=== PATIENT | female | born 1930 | race Caucasian/White ===

== ENCOUNTER → 2016-10-04 | Outpatient (CLI) | payer MEDICARE ==
--- NOTE | 2016-10-04 21:42 | Diagnostic Imaging Report ---
APPROVED REPORT CPT Code: 01117 Present Symptoms Lower Extremity Edema: Bilateral BILATERAL: Imaging reveals a patent deep venous system bilaterally. There is no evidence of thrombus within the femoral, popliteal or tibial segments. The greater saphenous veins are also within normal limits. Doppler indicates normal spontaneous flow within these segments.
--- NOTE | 2016-10-04 21:42 | Diagnostic Imaging Report ---
APPROVED REPORT CPT Code: 18969 Symptoms Comments: Edema RIGHT LEG: Iliac and common femoral arteries waveform analysis is abnormal, suggestive of aortoiliac arterial occlusive disease. Color flow duplex sonography reveals diffuse calcified plaque throughout the superficial femoral and popliteal arteries. There is no evidence of stenosis or occlusion within these segments. The tibioperoneal trunk was not well visualized. The distal posterior tibial and dorsalis pedis arteries are also severely calcified. Doppler waveform analysis is monophasic consistent, with severe ischemia at rest. LEFT LEG: Iliac artery waveform analysis is abnormal, suggestive of aortoiliac arterial occlusive disease. Color flow duplex sonography reveals an occlusion in the common femoral artery. Reconstitution is noted at the proximal superficial femoral artery at the junction of the bifurcation. The popliteal artery is patent. The tibioperoneal trunk was not well visualized. The distal posterior tibial and dorsalis pedis arteries are also severely calcified. Doppler waveform analysis is monophasic consistent, with severe ischemia at rest. Ankle Brachial Index was performed but unobtainable due to calcified vessels. DR. Antonio was notified of abnormal results at 1520 hours.
== END | disposition home or self-care (01) ==
LOC: VAS 12:21
DX: I82.403 Acute embolism and thrombosis of unspecified deep veins of lower extremity, bilateral (principal); R60.9 Edema, unspecified
CPT/HCPCS: 93925; 93970

== ENCOUNTER 2017-11-13 16:46 | Inpatient (IN) | payer MEDICARE ==
[~2017-11-13] VITALS: Ht 152.4 cm; Wt 47.7 kg
[2017-11-13 16:54] VITALS: BP 148/87
[2017-11-13] MEDS ORDERED: Sodium Chloride 500ML 500 ML IV ONE (16:58)
[2017-11-13] MEDS ORDERED: AMLODIPINE BESY10 MG ORAL (17:37)
[2017-11-13] MEDS ORDERED: BACTRIM DS TAB1 EAC1 ORAL (17:39)
[2017-11-13] MEDS ORDERED: MULTIVITAMINS1 EAC2 ORAL (17:40)
[2017-11-13] MEDS ORDERED: ARICEPT10 MG ORAL (17:41)
[2017-11-13] MEDS ORDERED: CYMBALTA60 MG ORAL (17:42)
[2017-11-13] MEDS ORDERED: FERROUS SULFAT325 MG ORAL (17:44)
[2017-11-13] MEDS ORDERED: DUONEB 0.5-3(2.53 ML HHN (17:44)
[2017-11-13 17:45] LABS: BASOPHILS % (AUTO) 0.4 % (0.0-2.0); EOSINOPHILS % (AUTO) 0.9 % (0.0-3.0); HEMATOCRIT 37.3 % (37.0-47.0); HEMOGLOBIN 12.2 G/DL (12.0-16.0); LYMPHOCYTES % (AUTO) 8.4 % (20.0-45.0); MEAN CORPUSCULAR VOLUME 91 FL (80-99); MONOCYTES % (AUTO) 6.4 % (1.0-10.0); NEUTROPHILS % (AUTO) 83.9 % (45.0-75.0); PLATELET COUNT 233 K/UL (150-450); RED CELL DISTRIBUTION WIDTH 12.6 % (11.6-14.8); WHITE BLOOD COUNT 10.9 K/UL (4.8-10.8)
[2017-11-13] MEDS ORDERED: Metoprolol 5mg/5ml Inj IVP ONE (17:45)
[2017-11-13] MEDS ORDERED: GABAPENTIN100 MG ORAL (17:46)
[2017-11-13] MEDS ORDERED: TYLENOL EXTRA500 MG ORAL (17:47)
[2017-11-13] MEDS ORDERED: ACETAMINOPHEN325 M1 ORAL (17:48)
[2017-11-13] MEDS ORDERED: MIRTAZAPINE15 MG ORAL (17:49)
[2017-11-13] MEDS ORDERED: ZOCOR20 M1 ORAL (17:50)
[2017-11-13 17:51] LABS: APPEARANCE,URINE SLIGHTLY CLOUDY; BILIRUBIN, URINE NEGATIVE (NEGATIVE); GLUCOSE, URINE (UA) NEGATIVE (NEGATIVE); KETONES,URINE NEGATIVE (NEGATIVE); LEUKOCYTE ESTERASE ,URINE 1+ (NEGATIVE); NITRITE,URINE NEGATIVE (NEGATIVE); PH,URINE 6 (4.5-8.0); PROTEIN,URINE 2+ (NEGATIVE); UROBILINOGEN,URINE 1 MG/DL (0.0-1.0)
[2017-11-13 17:52] LABS: COLOR,URINE YELLOW
[2017-11-13] MEDS ORDERED: SYSTANE 0.3-0.415 ML BOTH EYES (17:52)
[2017-11-13] MEDS ORDERED: VITAMIN B-12500 MCG ORAL (17:53)
[2017-11-13] MEDS ORDERED: VITAMIN C500 M1 ORAL (17:54)
[2017-11-13] MEDS ORDERED: VITAMIN D1000 UNI1 ORAL (17:55)
[2017-11-13] MEDS ORDERED: XARELTO10 MG ORAL (17:56)
--- NOTE | 2017-11-13 18:12 | Emergency Room Report ---
History of Present Illness General Chief Complaint: Dyspnea/Respdistress Source: Caregiver Present Illness HPI 87-year-old female presents ED for evaluation. Patient comes from facility for low O2 sat 1 day. O2 sat improved with oxygen upon arrival. Upon arrival patient showing no signs of distress. Baby Counselor at bedside. No fever. No reported chest pain. No other aggravating relieving factors. No other associated symptoms Allergies: Coded Allergies: ALCOHOL (Unverified Allergy, Unknown, 11/13/17) Patient History Past Medical History: AFib, CVA/TIA, psych hx Past Surgical History: none Pertinent Family History: none Social History: Denies: smoking, alcohol use, drug use Now: No Immunizations: UTD Reviewed Nursing Documentation: PMH: Agreed; PSxH: Agreed Nursing Documentation-PMH Hx Cardiac Problems: Yes - A-fib, PVD History Of Psychiatric Problem: Yes - depression Hx Cerebrovascular Accident: Yes Review of Systems All Other Systems: limited Physical Exam Vital Signs Date Time Temp Pulse Resp B/P (MAP) Pulse Ox O2 Delivery O2 Flow Rate FiO2 11/13/17 16:39 104 28 158/92 96 Nasal Cannula 6.0 Sp02 EP Interpretation: reviewed, normal General Appearance: no apparent distress, lethargic Head: normocephalic, atraumatic Eyes: bilateral eye normal inspection, bilateral eye PERRL ENT: hearing grossly normal, normal pharynx, no angioedema, normal voice Neck: full range of motion, supple/symm/no masses Respiratory: chest non-tender, normal breath sounds, crackles, speaking full sentences Cardiovascular #1: no edema, tachycardia Cardiovascular #2: 2+ carotid (R), 2+ carotid (L), 2+ radial (R), 2+ radial (L) , 2+ dorsalis pedis (R), 2+ dorsalis pedis (L) Gastrointestinal: normal bowel sounds, non tender, soft, non-distended, no guarding, no rebound Rectal: deferred Genitourinary: normal inspection, no CVA tenderness Musculoskeletal: back normal, gait/station normal, normal range of motion, non- tender Neurologic: other - lethargic Psychiatric: other - lethargic Reflexes: 3+ bicep (R), 3+ bicep (L), 3+ tricep (R), 3+ tricep (L), 3+ knee (R) , 3+ knee (L) Skin: normal color, no rash, warm/dry, well hydrated Lymphatic: no adenopathy Medical Decision Making Diagnostic Impression: Primary Impression: Respiratory distress Additional Impressions: Atrial fibrillation with rapid ventricular response UTI (urinary tract infection) Qualified Codes: N39.0 - Urinary tract infection, site not specified Sepsis Qualified Codes: A41.9 - Sepsis, unspecified organism ER Course Hospital Course 87-year-old female presents to ED with hypoxia, respiratory distress Differential diagnoses include: Pneumonia, CHF exacerbation, pneumothorax, fluid overload Clinical course Patient placed on stretcher. On monitor worker with hypoxia on room air and tachycardia. After initial history and physical, I ordered ABG. I ordered labs , IV fluids, EKG, chest x-ray, blood cultures, UA. ABG shows a low PO2. Started on Ventimask. Labs -no leukopenia noted, hemoglobin/hematocrit stable, Na 147, lactae 2.3, UA + bacteria EKGA. fib with RVR CXR - increased interstitial congestion R lung Patient given Lopressor with heart rate improved Patient had additional suctioning provided and O2 saturations improved. Given 30 mL per KG IV fluid bolus. Given antibiotics Discussed case with family. Patient is DO NOT RESUSCITATE, selective treatment Case discussed with Dr. Gross and he agreed to the patient to his service for further care and support I feel this is a highly complex case requiring extensive working including EKG/ Rhythm strip, Xray/CT/US, Blood/urine lab work, repeat exams while in ED, and administration of strong opiates/narcotics for pain control, admission to hospital or close patient follow up. Diagnosis - respiratory distress, afib with RVR, UTI, sepsis Patient admitted to telemetry in serious condition Labs Test 11/13/17 17:08 11/13/17 17:13 11/13/17 17:25 Arterial Blood pH 7.400 (7.350-7.450) Arterial Blood Partial Pressure CO2 40.4 mmHg (35.0-45.0) Arterial Blood Partial Pressure O2 61.8 mmHg (75.0-100.0) Arterial Blood HCO3 25.0 mmol/L (22.0-26.0) Arterial Blood Oxygen Saturation 90.2 % (92.0-98.0) Arterial Blood Base Excess 0.3 Randall Test Positive White Blood Count 10.9 K/UL (4.8-10.8) Red Blood Count 4.10 M/UL (4.20-5.40) Hemoglobin 12.2 G/DL (12.0-16.0) Hematocrit 37.3 % (37.0-47.0) Mean Corpuscular Volume 91 FL (80-99) Mean Corpuscular Hemoglobin 29.7 PG (27.0-31.0) Mean Corpuscular Hemoglobin Concent 32.6 G/DL (32.0-36.0) Red Cell Distribution Width 12.6 % (11.6-14.8) Platelet Count 233 K/UL (150-450) Mean Platelet Volume 7.2 FL (6.5-10.1) Neutrophils (%) (Auto) 83.9 % (45.0-75.0) Lymphocytes (%) (Auto) 8.4 % (20.0-45.0) Monocytes (%) (Auto) 6.4 % (1.0-10.0) Eosinophils (%) (Auto) 0.9 % (0.0-3.0) Basophils (%) (Auto) 0.4 % (0.0-2.0) Urine Color Yellow Urine Appearance Slightly cloudy Urine pH 6 (4.5-8.0) Urine Specific [place] 1.020 (1.005-1.035) Urine Protein 2+ (NEGATIVE) Urine Glucose (UA) Negative (NEGATIVE) Urine Ketones Negative (NEGATIVE) Urine Occult Blood 1+ (NEGATIVE) Urine Nitrite Negative (NEGATIVE) Urine Bilirubin Negative (NEGATIVE) Urine Urobilinogen 1 MG/DL (0.0-1.0) Urine Leukocyte Esterase 1+ (NEGATIVE) Urine RBC 2-4 /HPF (0 - 2) Urine WBC 5-10 /HPF (0 - 2) Urine Squamous Epithelial Cells Few /LPF (NONE/OCC) Urine Bacteria Occasional /HPF (NONE) Sodium Level 147 MMOL/L (136-145) Potassium Level 4.1 MMOL/L (3.5-5.1) Chloride Level 109 MMOL/L (98-107) Carbon Dioxide Level 29 MMOL/L (21-32) Anion Gap 9 mmol/L (5-15) Blood Urea Nitrogen 23 mg/dL (7-18) Creatinine 0.9 MG/DL (0.55-1.30) Estimat Glomerular Filtration Rate mL/min (>60) Glucose Level 114 MG/DL (74-106) Lactic Acid Level 2.30 mmol/L (0.66-2.22) Calcium Level 8.2 MG/DL (8.5-10.1) Total Bilirubin 0.3 MG/DL (0.2-1.0) Aspartate Amino Transf (AST/SGOT) 28 U/L (15-37) Alanine Aminotransferase (ALT/SGPT) 24 U/L (12-78) Alkaline Phosphatase 75 U/L (46-116) Total Creatine Kinase 69 U/L (26-308) Creatine Kinase MB 1.5 NG/ML (0.0-3.6) Creatine Kinase MB Relative Index 2.1 Troponin I 0.005 ng/mL (0.000-0.056) Pro-B-Type Natriuretic Peptide 5370 pg/mL (0-125) Total Protein 6.6 G/DL (6.4-8.2) Albumin 3.0 G/DL (3.4-5.0) Globulin 3.6 g/dL Albumin/Globulin Ratio 0.8 (1.0-2.7) EKG Diagnostic Results Rate: tachycardiac Rhythm: other - afib with RVR ST Segments: no acute changes ASA given to the pt in ED: No Rhythm Strip Diag. Results EP Interpretation: yes Rhythm: no PVC's, no ectopy Chest X-Ray Diagnostic Results Chest X-Ray Diagnostic Results : Chest X-Ray Ordered: Yes # of Views/Limited/Complete: 1 View Indication: Shortness of Breath EP Interpretation: Yes Interpretation: no pneumothorax, other - increased interstitial changes on R side Impression: Other - ?PNA Electronically Signed by: Electronically signed by Philip Ospina MD Last Vital Signs Date Time Temp Pulse Resp B/P (MAP) Pulse Ox O2 Delivery O2 Flow Rate FiO2 11/13/17 17:49 144 138/88 11/13/17 16:54 28 96 Nasal Cannula 6.0 Status: improved Disposition: ADMITTED INPATIENT Condition: Serious Referrals: KALEB GROSS (PCP) Philip Ospina MD Nov 13, 2017 18:12
[2017-11-13 18:16] LABS: ANION GAP 9 mmol/L (5-15); BLOOD UREA NITROGEN 23 mg/dL (7-18); CALCIUM 8.2 MG/DL (8.5-10.1); CARBON DIOXIDE 29 MMOL/L (21-32); CHLORIDE 109 MMOL/L (98-107); CREATININE 0.9 MG/DL (0.55-1.30); POTASSIUM 4.1 MMOL/L (3.5-5.1); SODIUM 147 MMOL/L (136-145)
[2017-11-13 18:33] LABS: ALANINE AMINOTRANSFERASE 24 U/L (12-78); ALBUMIN/GLOBULIN RATIO 0.8 (1.0-2.7); ALKALINE PHOSPHATASE 75 U/L (46-116); ASPARTATE AMINO TRANSFERASE 28 U/L (15-37); BILIRUBIN,TOTAL 0.3 MG/DL (0.2-1.0); CKMB 1.5 NG/ML (0.0-3.6); CREATINE KINASE 69 U/L (26-308)
[2017-11-13 20:30] VITALS: BP 139/88
--- NOTE | 2017-11-13 21:10 | Geriatric Progress Note ---
Subjective Interval Events Patient currently sleeping, appears more comfortable. Patient with increasing congestion, cough for about a week. Evaluation at her [facility] included CXR with "mild RUL infiltrate" suggestive of pneumonitis. Respiratory treatments and Bactrim DS were initiated. Today, the facility reported that patient's sxs were worse, and she had been desaturating, and requiring 5l/m O2. The choice of emergency room evaluation was deferred initially by family members, but subsequently patient was brought to the ED at [facility]. Evaluation revealed sats as low as the 70s, the patient was noted to have elevated lactate, and it was felt that the patient had a R pneumonitis. Levaquin was given and the patient received hydration. Rapid a fib was treated with metoprolol with rate control achieved. Suctioning improved O2 sats. The patient was admitted for further eval and tx. Family at bedside, confirmed DNR/DNI, continue active tx. PMH: Moderately advanced cognitive dysfunction - ? vascular dementia, ? Korsakoff's, ?element of primary degenerative dementia. S/p CVA, s/p L CEA. Lumbar spinal stenosis/scoliosis. Hx tobacco usage. Hx alcohol dependency. HTN. Dyslipidemia. COPD. CHF. Osteoporosis. L foot drop. Peripheral neuropathy. Chronic pain syndrome. Anxious depression. Hx R femoral fracture. Gait disorder, non-ambulatory. Atrial fibrillation. B12 deficiency. Vit D deficiency. Medications: Acetaminophen 500mg qam, qnoon, qpm. Amlodipine 10mg daily. Vitamin C 1000mg daily. B12 1mg daily po. Vit D3 2000u daily. MVI. Donepezil 10mg qhs. Duloxetine 60mg daily. Mirtazapine 15mg qhs. Rivaroxaban 15mg daily. Simvastatin 20mg qhs. Gabapentin 100mg bid. FeSO4 325mg bid. Systane 1gtt ou tid. OcuSoft Eyelid Cleansing External Pad Sleeping. O2 in place. Chest with rhonchi, rales diffusely, no wheezing. CV irregular. Abd nl bowel sounds, soft, non-tender, without masses. Ext trace ankle edema. Imp: Pneumonia +/- CHF, possibly precipitated by rapid a fib. A fib with hx of CHF, suspect element of diastolic dysfunction due to rapid rate , hypoxia. ? systolic component with ischemic component. Resp tx, one dose IV Lasix, O2, bronchodilator tx, Ceftriaxone, Vanco. Recheck labs. Check echo. Dictated #[id number]. Geriatric Geriatric Last 24 Hour Vital Signs Date Time Temp Pulse Resp B/P (MAP) Pulse Ox O2 Delivery O2 Flow Rate FiO2 11/13/17 20:19 28 138/88 96 Nasal Cannula 6.0 11/13/17 17:49 144 138/88 11/13/17 16:54 28 148/87 96 Nasal Cannula 6.0 11/13/17 16:54 104 28 Nasal Cannula 6.0 11/13/17 16:39 104 28 158/92 96 Nasal Cannula 6.0 Laboratory Tests Test 11/13/17 17:08 11/13/17 17:13 11/13/17 17:25 11/13/17 19:23 Arterial Blood pH 7.400 (7.350-7.450) Arterial Blood Partial Pressure CO2 40.4 mmHg (35.0-45.0) Arterial Blood Partial Pressure O2 61.8 mmHg (75.0-100.0) L Arterial Blood HCO3 25.0 mmol/L (22.0-26.0) Arterial Blood Oxygen Saturation 90.2 % (92.0-98.0) L Arterial Blood Base Excess 0.3 Randall Test Positive White Blood Count 10.9 K/UL (4.8-10.8) H Red Blood Count 4.10 M/UL (4.20-5.40) L Hemoglobin 12.2 G/DL (12.0-16.0) Hematocrit 37.3 % (37.0-47.0) Mean Corpuscular Volume 91 FL (80-99) Mean Corpuscular Hemoglobin 29.7 PG (27.0-31.0) Mean Corpuscular Hemoglobin Concent 32.6 G/DL (32.0-36.0) Red Cell Distribution Width 12.6 % (11.6-14.8) Platelet Count 233 K/UL (150-450) Mean Platelet Volume 7.2 FL (6.5-10.1) Neutrophils (%) (Auto) 83.9 % (45.0-75.0) H Lymphocytes (%) (Auto) 8.4 % (20.0-45.0) L Monocytes (%) (Auto) 6.4 % (1.0-10.0) Eosinophils (%) (Auto) 0.9 % (0.0-3.0) Basophils (%) (Auto) 0.4 % (0.0-2.0) Urine Color Yellow Urine Appearance Slightly cloudy Urine pH 6 (4.5-8.0) Urine Specific [place] 1.020 (1.005-1.035) Urine Protein 2+ (NEGATIVE) H Urine Glucose (UA) Negative (NEGATIVE) Urine Ketones Negative (NEGATIVE) Urine Occult Blood 1+ (NEGATIVE) H Urine Nitrite Negative (NEGATIVE) Urine Bilirubin Negative (NEGATIVE) Urine Urobilinogen 1 MG/DL (0.0-1.0) H Urine Leukocyte Esterase 1+ (NEGATIVE) H Urine RBC 2-4 /HPF (0 - 2) H Urine WBC 5-10 /HPF (0 - 2) H Urine Squamous Epithelial Cells Few /LPF (NONE/OCC) Urine Bacteria Occasional /HPF (NONE) Sodium Level 147 MMOL/L (136-145) H Potassium Level 4.1 MMOL/L (3.5-5.1) Chloride Level 109 MMOL/L (98-107) H Carbon Dioxide Level 29 MMOL/L (21-32) Anion Gap 9 mmol/L (5-15) Blood Urea Nitrogen 23 mg/dL (7-18) H Creatinine 0.9 MG/DL (0.55-1.30) Estimat Glomerular Filtration Rate mL/min (>60) Glucose Level 114 MG/DL (74-106) H Lactic Acid Level 2.30 mmol/L (0.66-2.22) H 1.70 mmol/L (0.66-2.22) Calcium Level 8.2 MG/DL (8.5-10.1) L Total Bilirubin 0.3 MG/DL (0.2-1.0) Aspartate Amino Transf (AST/SGOT) 28 U/L (15-37) Alanine Aminotransferase (ALT/SGPT) 24 U/L (12-78) Alkaline Phosphatase 75 U/L (46-116) Total Creatine Kinase 69 U/L (26-308) Creatine Kinase MB 1.5 NG/ML (0.0-3.6) Creatine Kinase MB Relative Index 2.1 Troponin I 0.005 ng/mL (0.000-0.056) Pro-B-Type Natriuretic Peptide 5370 pg/mL (0-125) H Total Protein 6.6 G/DL (6.4-8.2) Albumin 3.0 G/DL (3.4-5.0) L Globulin 3.6 g/dL Albumin/Globulin Ratio 0.8 (1.0-2.7) L Height (Feet): 5 Weight (Pounds): 100 KALEB GROSS Nov 13, 2017 21:10
[2017-11-13] MEDS ORDERED: Albuterol/Ipratropium 3ml neb HHN PRN (22:15)
[2017-11-13] MEDS ORDERED: Vancomycin 1gm in D5W 275ml IVPB ONE (22:30)
[2017-11-13] MEDS ORDERED: Vancomycin 1gm inj IVPB ONE (23:01)
[2017-11-13] MEDS: cefTRIAXone 1 GM in D5W 55 ML IVPB SCH (23:29)
[2017-11-14] VITALS: BP 127/68
[2017-11-14] MEDS: Albuterol/Ipratropium 3ml neb HHN SCH ×3 (01:45→12:55)
[2017-11-14 04:00] VITALS: BP 120/76
[2017-11-14 08:00] VITALS: BP 137/78
--- NOTE | 2017-11-14 08:01 | History and Physical Report ---
DATE OF ADMISSION: 11/13/2017 PATIENT IDENTIFICATION: The patient is an 87-year-old woman, who presents with increasing congestion, hypoxia, and difficulty breathing. HISTORY OF PRESENT ILLNESS: Ms. Amin is a patient with multiple chronic medical problems, who was noted approximately a week ago to have development of cough and congestion. Initially, her symptoms were compatible with viral syndrome. Subsequently, she was noted to have persistent cough and a chest x-ray was done, which showed a "mild" right upper lobe infiltrate possibly suggesting an element of pneumonitis. The patient was treated with bronchodilator therapy as well as oral Bactrim. Today, the patient was noted to be more congested with episodes of hypoxia, requiring 5 liters of oxygen supplementation at the [facility] where she lived. The option of having the patient to go to the emergency room was initially deferred by the patient's family members since they felt the patient could potentially recover on the antibiotic therapy and also because they felt that a trip to the emergency room would be disorienting given the patient's cognitive dysfunction, however, later in the day, the patient increasingly short of breath and the family agreed to transfer to the [facility]. In the emergency department, the patient was evaluated by Dr. Ospina, who found evidence of some opacity bilaterally on chest x-ray, more prominent on the right side and felt this was primarily due to pneumonitis. The patient was treated with a dose of intravenous Levaquin and respiratory treatments as well as oxygen supplementation. The patient was also noted to develop rapid ventricular response to chronic atrial fibrillation. A dose of metoprolol was given which provided rate control. The patient was then admitted for further evaluation and treatment. PAST MEDICAL HISTORY: 1. Moderately advanced cognitive dysfunction felt to be associated with underlying vascular dementia with possible component of Korsakoff's and possible element of primary degenerative dementia. 2. Status post prior cerebrovascular accident, status post left carotid endarterectomy. 3. Lumbar spinal stenosis and scoliosis, status post lumbar surgery x2. 4. History of tobacco usage. 5. History of alcohol dependency. 6. Hypertension. 7. Dyslipidemia. 8. COPD. 9. CHF. 10. Osteoporosis. 11. Left footdrop. 12. Peripheral neuropathy. 13. Chronic pain syndrome. 14. Anxious depression. 15. History of right femoral fracture, status post surgery. 16. Gait disorder, nonambulatory. 17. Atrial fibrillation. 18. B12 deficiency. 19. Vitamin D deficiency. MEDICATIONS: The patient's medications prior to admission included acetaminophen 500 mg q.a.m., q.noon, q.p.m. Amlodipine 10 mg daily, vitamin C 1000 mg daily, B12 1 mg daily p.o., vitamin D3 2000 units daily, multivitamins, donepezil 10 mg nightly, duloxetine 60 mg daily, mirtazapine 15 mg nightly, rivaroxaban 15 mg daily, simvastatin 20 mg nightly, gabapentin 100 mg b.i.d., ferrous sulfate 325 mg b.i.d., Systane 1 drop both eyes t.i.d., OCuSOFT eyelid cleansing external pads. ALLERGIES: No known drug allergies. SOCIAL HISTORY: The patient was born in [place], [place]. 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 She was in 2007 after being in 1970. She has four daughters. She moved into an [facility] several years ago and has been relatively stable. There is a prior long history of excessive alcohol use with multiple hospitalizations for blackouts and other sequela of alcohol. There is a history of possibly 45 pack-year smoking, which was discontinued some 25 years ago. She subsequently was treated by pain management and was on fairly large doses of narcotic medications without resolution of her pain and anxiety. In recent years, the patient has been managed with use of antidepressants including Cymbalta for pain management as well as peripheral neuropathy and has improved considerably. She has been at the [facility] and has been relatively pain-free and without evidence of significant anxiety in the facility on her medication regimen. FAMILY HISTORY: Not directly contributory at this time. REVIEW OF SYSTEMS: The patient is sleeping and unable to respond. Her family describes her as doing well until the onset of the symptoms outlined above. In fact, she was seen in the office on 10/23/2017 at which time, she was at her baseline, in good spirits without evidence of respiratory distress. PHYSICAL EXAMINATION: VITAL SIGNS: The patient was lying in bed, sleeping with oxygen in place at 6 liters. Her blood pressure was 138/88, respiratory rate was approximately 24, heart rate was 87 on the monitor, the patient was afebrile, oxygen saturation was 96%. GENERAL: The patient was a frail, chronically ill-appearing woman, sleeping, and not in obvious distress. HEAD AND NECK: Revealed normocephalic and atraumatic skull. Sclerae appeared anicteric. The oropharynx was not well visualized. The neck appeared to have normal range of motion without masses. CHEST: Revealed diffuse congestion with rhonchi throughout and rales predominantly in the lower lung faustin. No wheezing was heard. CARDIOVASCULAR: Revealed irregular rhythm with a controlled heart rate. ABDOMEN: Revealed normal bowel sounds. Soft and nontender without masses or organomegaly appreciated. EXTREMITIES: Revealed trace ankle edema. NEUROLOGIC: Could not be done because the patient was sleeping. LABORATORY AND DIAGNOSTIC DATA: The patient's chest x-ray has not been read officially, but was reviewed in the emergency room and revealed evidence of diffuse markings, more prominent in the right lung than the left and more prominent in the right lower region. Given the patient's chest x-ray findings suggested some focal infiltrate consistent with pneumonitis in the right lung, but also the diffuse haziness raises possibility of a component of fluid redistribution as well. The right upper lobe infiltrate that was reported on the x-ray at the facility was not visible. On my examination of the x-ray in the emergency room, possibility is that an infiltrate may have in fact been somewhat represented fluid redistribution which was changed because of body position on the followup film. Laboratory data revealed white count 10.9, hematocrit 37.3, MCV 91, platelet count 233,000 with 83.9% neutrophils in the differential and 8.4% lymphocytes. Blood gas done in the emergency room showed pH of 7.4, pCO2 of 40, pO2 of 62 on 3 liters by nasal cannula. Urinalysis revealed 2+ protein, 1+ occult blood, 1+ urobilinogen, 1+ leukocyte esterase, negative nitrites, 2 to 4 rbc's, 5 to 10 wbc's, and occasional bacteria. Sodium is 147, potassium 4.1, chloride 109, bicarbonate 29, BUN 23, creatinine 0.9, glucose 114. Lactate 2.30 initially. Repeat lactate 1.70. Calcium 8.2. Total bilirubin 0.3, AST 28, ALT 24, alkaline phosphatase 75. Total CK 69, MB 1.5. Troponin I 0.005. ProBNP 5370. Total protein 6.6, albumin 3.0. Electrocardiogram in the emergency room was reported to show rapid atrial fibrillation. IMPRESSION AND PLAN: The patient presents with a pulmonary process which potentially began with viral syndrome and may have developed mild secondary pneumonitis. At this point, there is also consideration of fluid overload as a contribution. Given the fact that the patient if anything looked somewhat volume depleted initially, possibility arises that the patient may have developed diastolic congestive heart failure precipitated by the rapid atrial fibrillation which may have been precipitated itself by the hypoxic episode. In any event, at this point, given the high BNP and the x-ray picture, a single dose of Lasix intravenously 20 mg will be given. The patient will be placed on ceftriaxone and vancomycin as broad-spectrum antibiotic coverage for the infectious component of her presentation. Respiratory treatments with bronchodilators will be used as well as suctioning and oxygen supplementation obviously. The patient's repeat laboratories will be checked. A cardiac echo will be obtained to evaluate left ventricular function and possible evidence of diastolic dysfunction. The situation was discussed in detail with the patient's daughters at bedside. Given the patient's advanced dementia as well as her multiple chronic medical problems, the patient has been elected to be DNR/DNI per prior POLST, but the family does wish to pursue usual therapies actively at the present time. They feel that the patient's quality of life recently has been quite reasonable given the control of her chronic pain syndrome and her depression and anxiety on medications and that the patient would benefit from extension of that functional level if it can be attained, however, should the patient have catastrophic complications then aggressive invasive therapy including resuscitation would not be desirable. Additional interventions will be considered depending on the patient's initial response to therapy. Chacho Antonio M.D. DR: VIRGIL JOB#: [id number] CC: ROSEY
[2017-11-14] MEDS: DULoxetine 30mg cap ORAL SCH (09:00)
[2017-11-14] MEDS ORDERED: NS Irrig 1000ml ONE (09:37)
[2017-11-14] MEDS ORDERED: Tubing IV Secondary IV ONE (09:37)
[2017-11-14 10:37] LABS: HEMATOCRIT 35.5 % (37.0-47.0); HEMOGLOBIN 11.4 G/DL (12.0-16.0); MEAN CORPUSCULAR VOLUME 90 FL (80-99); PLATELET COUNT 224 K/UL (150-450); RED BLOOD COUNT 3.92 M/UL (4.20-5.40); RED CELL DISTRIBUTION WIDTH 12.5 % (11.6-14.8); WHITE BLOOD COUNT 10.1 K/UL (4.8-10.8)
[2017-11-14 10:50] LABS: ALANINE AMINOTRANSFERASE 37 U/L (12-78); ALBUMIN 2.8 G/DL (3.4-5.0); ALBUMIN/GLOBULIN RATIO 0.7 (1.0-2.7); ALKALINE PHOSPHATASE 78 U/L (46-116); ANION GAP 12 mmol/L (5-15); ASPARTATE AMINO TRANSFERASE 39 U/L (15-37); BILIRUBIN,TOTAL 0.4 MG/DL (0.2-1.0); BLOOD UREA NITROGEN 19 mg/dL (7-18); CALCIUM 7.9 MG/DL (8.5-10.1); CARBON DIOXIDE 25 MMOL/L (21-32); CHLORIDE 107 MMOL/L (98-107); CREATININE 1.2 MG/DL (0.55-1.30); POTASSIUM 3.7 MMOL/L (3.5-5.1); SODIUM 144 MMOL/L (136-145)
--- NOTE | 2017-11-14 11:01 | Diagnostic Imaging Report ---
Indication: Shortness of breath Technique: XRAY Chest 1v Comparison: None Findings: Heart is borderline enlarged. There are atherosclerotic calcifications. There is right apical scarring with calcified nodules again noted at the right apex. There is interstitial opacification/edema and patchy bilateral airspace opacities. Question trace right pleural effusion. No definite pneumothorax. There is osteopenia, scoliosis and multilevel degenerative change of the spine. Lumbar hardware partially visualized. Multiple clips noted overlying the left neck. Impression: Interstitial opacification/edema and patchy bilateral airspace opacities with probable trace pleural effusions. Findings possibly related to CHF/fluid overload. Superimposed pneumonia not entirely excluded. Clinical correlation and follow-up exam recommended. Study obtained via the emergency department however patient admitted to the hospital at time of dictation of the final report.
[2017-11-14] MEDS ORDERED: Levalbuterol Inh UD 1.25mg/0.5ml HHN PRN (13:45)
[2017-11-14 13:56] VITALS: BP 101/61
[2017-11-14] MEDS ORDERED: Ipratropium 0.02% Inh Soln 2.5ml UD HHN PRN (14:15)
[2017-11-14] MEDS: Xarelto 15mg tab ORAL SCH (15:00)
--- NOTE | 2017-11-14 16:27 | Consultation ---
Consult Note Assessment/Plan [facility] DICT # [id number] BRIDGETT MORENO M.D. Nov 14, 2017 16:27
[2017-11-14 20:00] VITALS: BP 110/72
[2017-11-14] MEDS: Donepezil 10mg tab ORAL SCH (21:05)
--- NOTE | 2017-11-14 21:30 | Consultation ---
DATE OF CONSULTATION: 11/14/2017 PULMONARY CONSULTATION CONSULTING PHYSICIAN: Isai Chin M.D. REFERRING PHYSICIAN: Chacho Antonio M.D. REASON FOR CONSULTATION: Shortness of breath. HISTORY OF PRESENT ILLNESS: The patient is an 87-year-old female with a history of cognitive dysfunction, thought to be secondary to vascular dementia and Korsakoff syndrome, prior CVA and multiple other medical problems, who resides at a assisted living ([place]), who presents with shortness of breath, cough and congestion. Initially, her symptoms were thought to be secondary to a viral URI. She has cough, congestion and rhinorrhea. Chest x-ray showed mild right upper lobe infiltrate. The patient was treated with bronchodilators and Bactrim. Her symptoms got worse with increased wheezing as well as progressive oxygen requirement up to 5 liters. The patient was sent to the emergency department. Initially, the family did not want her to go and I was uncertain of their views and goals of care, but they agreed. When she arrived at the emergency department, chest x-ray showed right-sided infiltrate. The patient has been started on Rocephin and vancomycin. The patient went into atrial fibrillation with rapid ventricular response in the ER, and was given metoprolol. She has been afebrile with T-max of 97.9 degrees and is saturating in the mid 90s on 15 liters non-rebreather facemask. Labs were unremarkable. ABG was 7.4/40/61/25/90. She did have a mild lactic acidosis with lactic acid of 2.3, but that has since resolved. She had an elevated beta-natriuretic peptide and in addition to pneumonia, evidence of urinary tract infection. PAST MEDICAL HISTORY: 1. Cognitive dysfunction. 2. Korsakoff's. 3. Vascular dementia. 4. CVA. 5. Carotid endarterectomy. 6. Prior tobacco use. 7. Prior alcohol use. 8. Hypertension. 9. Hyperlipidemia. 10. CHF. 11. COPD. 12. Osteoporosis. 13. Peripheral neuropathy. 14. Left footdrop. 15. Chronic pain syndrome. 16. Anxiety. 17. Depression. 18. History of ORIF of the femur. 19. Gait deformity. 20. Paroxysmal atrial fibrillation. 21. Vitamin D deficiency. 22. B12 deficiency. MEDICATIONS: Prior to admission medications reviewed. Current medications reviewed. ALLERGIES: No known drug allergies. SOCIAL HISTORY: The patient lives in assisted living. She is and has 4 daughters. Extensive history of tobacco and alcohol in the past, none current. FAMILY HISTORY: Noncontributory. REVIEW OF SYSTEMS: Unobtainable. PHYSICAL EXAMINATION: GENERAL: She is a confused, demented female, in no acute distress. Awake, but oriented x0. VITAL SIGNS: Temperature is 97.9 degrees, pulse 104, blood pressure 101/61, respiratory rate 22, and saturating 94% on 55% FiO2, 15 liters Venturi mask. HEENT: Normocephalic and atraumatic. Oropharynx is clear. NECK: Supple without lymphadenopathy. CHEST: Coarse bilateral breath sounds, end-expiratory wheezing with some bibasilar rales. HEART: Irregularly irregular. ABDOMEN: Soft and nondistended. EXTREMITIES: No clubbing or clubbing. There is 1+ edema. ANCILLARY DATA: White count 10.1, hemoglobin 11.4 and platelet count 224. ABG 7.4/40/61/25/90. Chemistry - sodium 141, potassium 3.7, chloride 105, bicarbonate 25, BUN 19, creatinine 1.2 and glucose 131. Lactate 2.30 and then 1.70. Calcium 7.9. Magnesium 1.7. Total bilirubin 0.4. AST 39, ALT 37 and alkaline phosphatase 78. Troponin 0.005. BNP 5370 and followup 6407. Total protein 6.7. Albumin 2.8. Urinalysis, 2+ protein, 1+ occult blood, negative ketones, 1+ leukocyte esterase, 5 to 10 white. Rapid flu is negative. Chest x-ray shows interstitial opacities, trace pleural effusions and possible patchy right upper lobe airspace opacity. ASSESSMENT: The patient is an 87-year-old demented female, assisted living resident with a history of Korsakoff syndrome, CHF, COPD, ETOH and tobacco use in the past, paroxysmal atrial fibrillation, presenting with respiratory illness, likely viral URI with superimposed tracheobronchitis/pneumonia, possible aspiration with a component of reactive airway disease and bronchospasm as well as pulmonary edema. PROBLEM LIST: 1. Acute hypoxemic respiratory failure, likely multifactorial. 2. Likely viral upper respiratory tract infection with subsequent tracheobronchitis/pneumonia. 3. Congestive heart failure with a component of acute decompensated heart failure. 4. Bronchospasm and reactive airway disease. 5. Dementia. 6. Korsakoff syndrome. 7. Prior cerebrovascular accident. 8. Questionable underlying history of chronic obstructive pulmonary disease. 9. History of tobacco use in the past. 10. Paroxysmal atrial fibrillation. TREATMENT PLAN: 1. Optimize pulmonary hygiene/mobilize as tolerated. 2. Titrate down FiO2 to keep saturations greater than 90%. 3. Continue Rocephin and vancomycin, add Flagyl to cover aspiration. 4. Follow sputum culture and respiratory panel. 5. Onstrd-slh-wtjei and p.r.n. Atrovent and albuterol handheld nebulizer treatments. 6. P.r.n. Robitussin. 7. Monitor volumes, gentle diuresis as tolerated. 8. Aspiration precautions. 9. Swallow evaluation. 10. DVT prophylaxis. The patient is on Xarelto. 11. The patient is DNR/DNI. Dr. Antonio, thank you for allowing me to assist in the care of your patient. If I may be of any assistance, please do not hesitate to ask in the future. Case discussed with patient's daughter at bedside. Isai Chin M.D. DR: GAIL JOB#: [id number] CC:
--- NOTE | 2017-11-14 21:49 | Geriatric Progress Note ---
Assessment/Plan Problems: (1) Pneumonia (2) Bronchospasm (3) Acute on chronic diastolic CHF (congestive heart failure), NYHA class 4 (4) Vascular dementia (5) Chronic pain syndrome (6) Anxious depression (7) Atrial fibrillation with rapid ventricular response (8) Respiratory distress (9) Sepsis Assessment/Plan Patient currently with normal wbc on empiric coverage with Ceftriaxone, flagyl and vanco. Elevated proBNP, CXR suggestive of CHF. Will give low dose Lasix. RVR, give low dose metoprolol, patient to be monitored for wheezing. Reattempt echo. Attempt to regularize intake and med compliance. Recheck CXR. Discussed with: family, hospital staff Subjective Interval Events Patient at times agitated per staff, however, currently calm, denies c/o, but responses likely of dubious accuracy. Discussed with Dr. Chin who considered steroids, but has subsequently held off. Lasix 20mg IV dose ordered was held for relatively low bp. The patient also was reported to have refused her echo, although the circumstances are unclear. Patient has not had much intake today. She has not been given a number of her meds due to "refusal" and being asleep. Her labs are notable for further increase in proBNP. Her O2 needs appear increased, but currently she appears comfortable at rest with the NRBM. The patient has experienced episodes of RVR to the 140s, frequently associated with movement during care. Her clinical status was discussed with her dtr Elysia by phone in great detail, including the option of converting to purely palliative care if her quality of life appeared to be declining further. Constitutional: Denies: pain Subjective Limited responses at present. Geriatric Geriatric Last 24 Hour Vital Signs Date Time Temp Pulse Resp B/P (MAP) Pulse Ox O2 Delivery O2 Flow Rate FiO2 11/14/17 16:00 112 11/14/17 13:56 97.9 104 22 101/61 94 Venturi Mask 55 97.9 11/14/17 13:02 120 22 96 Non-Rebreather 15.0 100 11/14/17 13:01 100 11/14/17 12:55 114 20 92 Non-Rebreather 15.0 100 11/14/17 12:00 110 11/14/17 10:02 110 22 96 Venturi Mask 14.0 55 11/14/17 09:53 Venturi Mask 14.0 55 11/14/17 09:53 55 11/14/17 09:53 99 20 92 Venturi Mask 14.0 55 11/14/17 09:51 92 Venturi Mask 14.0 55 11/14/17 09:00 111 120/76 11/14/17 08:00 98 11/14/17 08:00 97.3 101 22 137/78 98 Venturi Mask 55 97.3 11/14/17 04:00 111 11/14/17 04:00 97.2 103 22 120/76 92 Venturi Mask 55 97.2 11/14/17 01:54 102 22 95 Venturi Mask 14.0 55 11/14/17 01:48 55 11/14/17 01:45 99 24 93 Venturi Mask 14.0 55 11/14/17 00:00 94 11/14/17 00:00 97.5 96 24 127/68 95 Venturi Mask 55 97.5 11/13/17 23:14 110 26 96 Venturi Mask 14.0 55 11/13/17 23:02 119 30 Venturi Mask 14.0 55 11/13/17 23:01 55 11/13/17 23:00 119 30 88 Venturi Mask 14.0 55 Intake and Output 11/13/17 11/14/17 19:00 07:00 Intake Total 0 ml 330 ml Balance 0 ml 330 ml Intake Oral 0 ml IV Total 330 ml # Voids 3 Laboratory Tests Test 11/14/17 10:20 White Blood Count 10.1 K/UL (4.8-10.8) Red Blood Count 3.92 M/UL (4.20-5.40) L Hemoglobin 11.4 G/DL (12.0-16.0) L Hematocrit 35.5 % (37.0-47.0) L Mean Corpuscular Volume 90 FL (80-99) Mean Corpuscular Hemoglobin 29.0 PG (27.0-31.0) Mean Corpuscular Hemoglobin Concent 32.0 G/DL (32.0-36.0) Red Cell Distribution Width 12.5 % (11.6-14.8) Platelet Count 224 K/UL (150-450) Mean Platelet Volume 7.3 FL (6.5-10.1) Neutrophils (%) (Auto) % (45.0-75.0) Lymphocytes (%) (Auto) % (20.0-45.0) Monocytes (%) (Auto) % (1.0-10.0) Eosinophils (%) (Auto) % (0.0-3.0) Basophils (%) (Auto) % (0.0-2.0) Differential Total Cells Counted 100 Neutrophils % (Manual) 81 % (45-75) H Lymphocytes % (Manual) 10 % (20-45) L Monocytes % (Manual) 9 % (1-10) Eosinophils % (Manual) 0 % (0-3) Basophils % (Manual) 0 % (0-2) Band Neutrophils 0 % (0-8) Platelet Estimate Adequate Platelet Morphology Normal Red Blood Cell Morphology Normal Anisocytosis 1+ Sodium Level 144 MMOL/L (136-145) Potassium Level 3.7 MMOL/L (3.5-5.1) Chloride Level 107 MMOL/L (98-107) Carbon Dioxide Level 25 MMOL/L (21-32) Anion Gap 12 mmol/L (5-15) Blood Urea Nitrogen 19 mg/dL (7-18) H Creatinine 1.2 MG/DL (0.55-1.30) Estimat Glomerular Filtration Rate mL/min (>60) Glucose Level 131 MG/DL (74-106) H Calcium Level 7.9 MG/DL (8.5-10.1) L Magnesium Level 1.7 MG/DL (1.8-2.4) L Total Bilirubin 0.4 MG/DL (0.2-1.0) Aspartate Amino Transf (AST/SGOT) 39 U/L (15-37) H Alanine Aminotransferase (ALT/SGPT) 37 U/L (12-78) Alkaline Phosphatase 78 U/L (46-116) Pro-B-Type Natriuretic Peptide 6407 pg/mL (0-125) H Total Protein 6.7 G/DL (6.4-8.2) Albumin 2.8 G/DL (3.4-5.0) L Globulin 3.9 g/dL Albumin/Globulin Ratio 0.7 (1.0-2.7) L Current Medications Medications (Trade) Dose Ordered Sig/Neo Route PRN Reason Start Time Stop Time Status Last Admin Dose Admin Acetaminophen (Tylenol) 650 mg Q6H PRN ORAL For Pain 11/13/17 22:15 12/13/17 22:14 Amlodipine Besylate (Norvasc) 10 mg DAILY ORAL 11/14/17 09:00 12/14/17 08:59 Ceftriaxone Sodium 1 gm/ Dextrose 55 ml @ 110 mls/hr Q24H IVPB 11/13/17 23:00 11/20/17 22:59 11/13/17 23:29 Donepezil HCl (Aricept) 10 mg QHS ORAL 11/14/17 21:00 12/14/17 20:59 11/14/17 21:05 Duloxetine HCl (Cymbalta) 60 mg DAILY ORAL 11/14/17 09:00 12/14/17 08:59 Gabapentin (Neurontin) 100 mg BID ORAL 11/14/17 09:00 12/14/17 08:59 Ipratropium [place] (Atrovent) 500 mcg Q4H PRN HHN Unrelieved Shortness of Breath 11/14/17 14:15 11/19/17 14:14 Ipratropium [place] (Atrovent) 500 mcg Q6HRT HHN 11/14/17 19:00 11/19/17 18:59 Levalbuterol HCl (Xopenex) 1.25 mg Q4H PRN HHN SOB and wheezing 11/14/17 13:45 11/19/17 13:44 Levalbuterol HCl (Xopenex) 1.25 mg Q6HRT HHN 11/14/17 19:00 11/19/17 18:59 Metronidazole 100 ml @ 100 mls/hr Q8HR IVPB 11/14/17 16:00 11/21/17 15:59 11/14/17 15:29 Mirtazapine (Remeron) 15 mg BEDTIME ORAL 11/14/17 21:00 12/14/17 20:59 11/14/17 21:05 Rivaroxaban (Xarelto) 15 mg DAILY ORAL 11/14/17 15:00 12/14/17 14:59 Vancomycin HCl (Vanco rx to dose) 1 ea DAILY PRN MISC Per rx protocol 11/13/17 22:15 12/13/17 22:14 Vancomycin HCl 500 mg/Dextrose 275 ml @ 275 mls/hr Q24H IVPB 11/14/17 22:30 11/19/17 22:29 Height (Feet): 5 Height (Inches): 0.00 Weight (Pounds): 100 General Appearance: other - arousable Head: normocephalic, atraumatic Eyes: bilateral anicteric ENT: normal voice - minimally congested Neck: full range of motion, no mass Respiratory: rales - lower lobe, rhonchi Cardiovascular: irregularly irregular Gastrointestinal: normal bowel sounds, non tender, soft, no mass, no organomegaly, non-distended Musculoskeletal: no calf tenderness Edema: no edema noted Generalized KALEB GROSS Nov 14, 2017 21:49
[2017-11-14] MEDS: Ipratropium 0.02% Inh Soln 2.5ml UD HHN SCH (22:04)
[2017-11-14] MEDS: Levalbuterol Inh UD 1.25mg/0.5ml HHN SCH (22:04)
[2017-11-14] MEDS: Metoprolol Tartrate 12.5mg TAB ORAL SCH (22:15)
[2017-11-14] MEDS: Vancomycin 500mg in D5W 275ml IVPB SCH (22:34)
[2017-11-14] MEDS: cefTRIAXone 1 GM in D5W 55 ML IVPB SCH (23:29)
[2017-11-15] VITALS: BP 102/63
[2017-11-15] MEDS: Ipratropium 0.02% Inh Soln 2.5ml UD HHN SCH ×4 (01:36→19:07)
[2017-11-15] MEDS: Levalbuterol Inh UD 1.25mg/0.5ml HHN SCH ×4 (01:36→19:09)
[2017-11-15 04:00] VITALS: BP 117/85
[2017-11-15 08:00] VITALS: BP 107/73
[2017-11-15] MEDS: DULoxetine 30mg cap ORAL SCH (08:56)
[2017-11-15] MEDS: Xarelto 15mg tab ORAL SCH (08:56)
[2017-11-15] MEDS: Magnesium Oxide 400mg tab ORAL SCH (08:56)
[2017-11-15] MEDS: Metoprolol Tartrate 12.5mg TAB ORAL SCH (08:57)
--- NOTE | 2017-11-15 09:36 | Diagnostic Imaging Report ---
Indication: Reason For Exam: SOB Technique: XRAY Chest 1v Comparison:11/13/2017 Findings: Compared to previous study there is increasing airspace disease in the right upper lobe. Bilateral interstitial disease remains. Remainder the chest is unchanged. Impression: Increasing right upper lobe airspace disease consistent with pneumonia.
[2017-11-15 10:12] LABS: MEAN CORPUSCULAR VOLUME 90 FL (80-99); PLATELET COUNT 257 K/UL (150-450); RED BLOOD COUNT 4.12 M/UL (4.20-5.40); RED CELL DISTRIBUTION WIDTH 12.4 % (11.6-14.8); WHITE BLOOD COUNT 12.4 K/UL (4.8-10.8)
[2017-11-15 10:29] LABS: ALANINE AMINOTRANSFERASE 41 U/L (12-78); ALBUMIN 2.9 G/DL (3.4-5.0); ALBUMIN/GLOBULIN RATIO 0.7 (1.0-2.7); ALKALINE PHOSPHATASE 82 U/L (46-116); ANION GAP 8 mmol/L (5-15); ASPARTATE AMINO TRANSFERASE 43 U/L (15-37); BILIRUBIN,TOTAL 0.6 MG/DL (0.2-1.0); BLOOD UREA NITROGEN 18 mg/dL (7-18); CALCIUM 8.2 MG/DL (8.5-10.1); CARBON DIOXIDE 30 MMOL/L (21-32); CHLORIDE 105 MMOL/L (98-107); CREATININE 0.9 MG/DL (0.55-1.30); POTASSIUM 3.6 MMOL/L (3.5-5.1); SODIUM 143 MMOL/L (136-145)
[2017-11-15 12:00] VITALS: BP 107/72
--- NOTE | 2017-11-15 12:22 | Pulmonology Progress Note ---
Assessment/Plan Problems: (1) Pneumonia (2) Bronchospasm (3) Atrial fibrillation with rapid ventricular response (4) Vascular dementia (5) UTI (urinary tract infection) (6) Acute on chronic diastolic CHF (congestive heart failure), NYHA class 4 Assessment/Plan ASSESSMENT: The patient is an 87-year-old demented female, assisted living resident with a history of Korsakoff syndrome, CHF, COPD, ETOH and tobacco use in the past, paroxysmal atrial fibrillation, presenting with respiratory illness, likely viral URI with superimposed tracheobronchitis/pneumonia, possible aspiration with a component of reactive airway disease and bronchospasm as well as pulmonary edema. PROBLEM LIST: 1. Acute hypoxemic respiratory failure, likely multifactorial. 2. Likely viral upper respiratory tract infection with subsequent tracheobronchitis/pneumonia. 3. Congestive heart failure with a component of acute decompensated heart failure. 4. Bronchospasm and reactive airway disease. 5. Dementia. 6. Korsakoff syndrome. 7. Prior cerebrovascular accident. 8. Questionable underlying history of chronic obstructive pulmonary disease. 9. History of tobacco use in the past. 10. Paroxysmal atrial fibrillation. TREATMENT PLAN: 1. Optimize pulmonary hygiene/mobilize as tolerated. 2. Titrate down FiO2 to keep saturations greater than 90%. 3. Continue Rocephin, vancomycin and Flagyl (D2), will de-escalate next 24 hours. 4. Follow sputum culture and respiratory panel. 5. Qbeylg-suh-yzhpw and p.r.n. Atrovent and levalbuterol (Xopenex) handheld nebulizer treatments. 6. P.r.n. Robitussin. 7. Monitor volumes, gentle diuresis as tolerated -additional 20 mg IV lasix given today 8. If persistent bronchospasm will consider a small short course of corticosteroids 9. Aspiration precautions, swallow evaluation. 10. DVT prophylaxis. The patient is on Xarelto. 11. The patient is DNR/DNI. 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, some wheezing, + SOB, no F/C Objective Last 24 Hour Vital Signs Date Time Temp Pulse Resp B/P (MAP) Pulse Ox O2 Delivery O2 Flow Rate FiO2 11/15/17 08:57 115 107/73 11/15/17 08:56 115 107/73 11/15/17 08:01 110 22 96 Non-Rebreather 15.0 100 11/15/17 08:00 115 11/15/17 08:00 97.7 123 24 107/73 94 Non-Rebreather 97.7 11/15/17 07:51 106 24 98 Non-Rebreather 15.0 100 11/15/17 07:51 Non-Rebreather 15.0 100 11/15/17 07:51 98 Non-Rebreather 15.0 100 11/15/17 04:00 97 11/15/17 04:00 98.0 104 24 117/85 98 Non-Rebreather 98.0 11/15/17 01:51 100 26 95 Non-Rebreather 15.0 100 11/15/17 01:38 100 11/15/17 01:38 96 20 96 Non-Rebreather 15.0 100 11/15/17 00:00 108 11/15/17 00:00 97.0 102 22 102/63 98 Non-Rebreather 97.0 11/14/17 22:15 108 110/72 11/14/17 20:30 128 26 96 Venturi Mask 14.0 55 11/14/17 20:20 Venturi Mask 14.0 55 11/14/17 20:20 95 Venturi Mask 14.0 55 11/14/17 20:20 100 11/14/17 20:20 118 20 92 Non-Rebreather 15.0 100 11/14/17 20:00 118 11/14/17 20:00 97.0 108 20 110/72 97 Non-Rebreather 97.0 11/14/17 16:00 112 11/14/17 13:56 97.9 104 22 101/61 94 Venturi Mask 55 97.9 11/14/17 13:02 120 22 96 Non-Rebreather 15.0 100 11/14/17 13:01 100 11/14/17 12:55 114 20 92 Non-Rebreather 15.0 100 Intake and Output 11/14/17 11/15/17 19:00 07:00 Intake Total 530 ml Balance 530 ml IV Total 530 ml # Voids 3 General Appearance: no acute distress, cachetic - elderly female HEENT: normocephalic, atraumatic Respiratory/Chest: crackles/rales - scattered rhonchi and BiB rales Cardiovascular: normal peripheral pulses, normal rate, regular rhythm Abdomen: normal bowel sounds, soft, non tender, no organomegaly Extremities: no cyanosis, no clubbing, no edema Microbiology Date/Time Source Procedure Growth Status 11/13/17 17:20 Blood Blood Culture - Preliminary NO GROWTH AFTER 24 HOURS Resulted 11/13/17 17:05 Blood Blood Culture - Preliminary NO GROWTH AFTER 24 HOURS Resulted 11/13/17 21:00 Nasal Nares MRSA Culture - Final NO METHICILLIN RESISTANT STAPH AUREUS... Complete 11/13/17 17:25 Nasal Nares Influenza Types A,B Antigen (DIANA) - Final Complete 11/13/17 21:00 Rectum VRE Culture - Final NO VANCOMYCIN RESISTANT ENTEROCOCCUS ... Complete Laboratory Tests 11/15/17 09:30: White Blood Count 12.4H, Red Blood Count 4.12L, Hemoglobin 12.0, Hematocrit 37.0 , Mean Corpuscular Volume 90, Mean Corpuscular Hemoglobin 29.0, Mean Corpuscular Hemoglobin Concent 32.3, Red Cell Distribution Width 12.4, Platelet Count 257, Mean Platelet Volume 8.4, Neutrophils (%) (Auto) , Lymphocytes (%) ( Auto) , Monocytes (%) (Auto) , Eosinophils (%) (Auto) , Basophils (%) (Auto) , Differential Total Cells Counted 100, Neutrophils % (Manual) 87H, Lymphocytes % (Manual) 6L, Monocytes % (Manual) 7, Eosinophils % (Manual) 0, Basophils % ( Manual) 0, Band Neutrophils 0, Platelet Estimate Adequate, Platelet Morphology Normal, Red Blood Cell Morphology Normal, Sodium Level 143, Potassium Level 3.6 , Chloride Level 105, Carbon Dioxide Level 30, Anion Gap 8, Blood Urea Nitrogen 18, Creatinine 0.9, Estimat Glomerular Filtration Rate , Glucose Level 130H, Calcium Level 8.2L, Magnesium Level 1.8, Total Bilirubin 0.6, Aspartate Amino Transf (AST/SGOT) 43H, Alanine Aminotransferase (ALT/SGPT) 41, Alkaline Phosphatase 82, Pro-B-Type Natriuretic Peptide 6311H, Total Protein 6.9, Albumin 2.9L, Globulin 4.0, Albumin/Globulin Ratio 0.7L Current Medications Medications (Trade) Dose Ordered Sig/Neo Route PRN Reason Start Time Stop Time Status Last Admin Dose Admin Acetaminophen (Tylenol) 650 mg Q6H PRN ORAL For Pain 11/13/17 22:15 12/13/17 22:14 Amlodipine Besylate (Norvasc) 10 mg DAILY ORAL 11/14/17 09:00 12/14/17 08:59 11/15/17 08:56 Ceftriaxone Sodium 1 gm/ Dextrose 55 ml @ 110 mls/hr Q24H IVPB 11/13/17 23:00 11/20/17 22:59 11/14/17 23:29 Donepezil HCl (Aricept) 10 mg QHS ORAL 11/14/17 21:00 12/14/17 20:59 11/14/17 21:05 Duloxetine HCl (Cymbalta) 60 mg DAILY ORAL 11/14/17 09:00 12/14/17 08:59 11/15/17 08:56 Gabapentin (Neurontin) 100 mg BID ORAL 11/14/17 09:00 12/14/17 08:59 11/15/17 08:56 Ipratropium [place] (Atrovent) 500 mcg Q4H PRN HHN Unrelieved Shortness of Breath 11/14/17 14:15 11/19/17 14:14 Ipratropium [place] (Atrovent) 500 mcg Q6HRT HHN 11/14/17 19:00 11/19/17 18:59 11/15/17 07:51 Levalbuterol HCl (Xopenex) 1.25 mg Q4H PRN HHN SOB and wheezing 11/14/17 13:45 11/19/17 13:44 Levalbuterol HCl (Xopenex) 1.25 mg Q6HRT HHN 11/14/17 19:00 11/19/17 18:59 11/15/17 07:51 Magnesium Oxide (Mag-Ox 400mg) 400 mg DAILY ORAL 11/15/17 09:00 12/15/17 08:59 11/15/17 08:56 Metoprolol [place] (Lopressor) 12.5 mg Q12HR ORAL 11/14/17 22:00 12/14/17 21:59 11/15/17 08:57 Metronidazole 100 ml @ 100 mls/hr Q8HR IVPB 11/14/17 16:00 11/21/17 15:59 11/15/17 05:57 Mirtazapine (Remeron) 15 mg BEDTIME ORAL 11/14/17 21:00 12/14/17 20:59 11/14/17 21:05 Rivaroxaban (Xarelto) 15 mg DAILY ORAL 11/14/17 15:00 12/14/17 14:59 11/15/17 08:56 Vancomycin HCl (Vanco rx to dose) 1 ea DAILY PRN MISC Per rx protocol 11/13/17 22:15 12/13/17 22:14 Vancomycin HCl 500 mg/Dextrose 275 ml @ 275 mls/hr Q24H IVPB 11/14/17 22:30 11/19/17 22:29 11/14/17 22:34 BRIDGETT MORENO M.D. Nov 15, 2017 12:22
[2017-11-15] MEDS ORDERED: Potassium Chloride 10 MEQ in NS 110 ML IVPB SCH (13:30)
[2017-11-15 16:00] VITALS: BP 108/71
[2017-11-15 20:00] VITALS: BP 108/71
--- NOTE | 2017-11-15 20:21 | Geriatric Progress Note ---
Assessment/Plan Problems: (1) Pneumonia (2) Bronchospasm (3) Acute on chronic diastolic CHF (congestive heart failure), NYHA class 4 (4) Vascular dementia (5) Chronic pain syndrome (6) Anxious depression (7) Atrial fibrillation with rapid ventricular response (8) Respiratory distress (9) Sepsis (10) Dysphagia (11) Encephalopathy Assessment/Plan Comfortable but without clinical improvement. Suspect combination of CHF and pneumonitis, ? aspiration. Continue present antibiotic coverage. Give additional low dose Lasix. Given relatively low bp, will d/c amlodipine, increase metoprolol for rate control. Await speech eval. Await echo. Continue other meds for now. Discussed with: hospital staff Subjective Interval Events Patient alert, appears to deny c/o. Speech aphasic with neologisms. Repeat CXR reveals increased R upper lobe infiltrate. Prior outpatient studies also revealed RUL "mild" infiltrate, raising issue of aspiration as contributing etiology. Swallow study pending. Apparently little oral intake per charting. HR continues to be 100-120 on Metoprolol 12.5mg bid. Echo pending if patient allows. Labs with persistent proBNP elevation. Wbc slightly higher. C&S unremarkable thus far. Constitutional: Reports: no symptoms reported Subjective Aphasic speech.. Geriatric Geriatric Last 24 Hour Vital Signs Date Time Temp Pulse Resp B/P (MAP) Pulse Ox O2 Delivery O2 Flow Rate FiO2 11/15/17 19:24 107 22 100 Non-Rebreather 15.0 100 11/15/17 19:04 100 11/15/17 19:04 107 22 100 Non-Rebreather 15.0 100 11/15/17 19:03 Non-Rebreather 15.0 100 11/15/17 19:03 100 Non-Rebreather 15.0 100 11/15/17 16:00 109 11/15/17 16:00 97.9 102 22 108/71 94 Non-Rebreather 97.9 11/15/17 12:38 107 24 96 Non-Rebreather 15.0 100 11/15/17 12:27 106 22 96 Non-Rebreather 15.0 100 11/15/17 12:00 101 11/15/17 12:00 97.9 102 26 107/72 95 Non-Rebreather 97.9 11/15/17 08:57 115 107/73 11/15/17 08:56 115 107/73 11/15/17 08:01 110 22 96 Non-Rebreather 15.0 100 11/15/17 08:00 115 11/15/17 08:00 97.7 123 24 107/73 94 Non-Rebreather 97.7 11/15/17 07:51 106 24 98 Non-Rebreather 15.0 100 11/15/17 07:51 Non-Rebreather 15.0 100 11/15/17 07:51 98 Non-Rebreather 15.0 100 11/15/17 04:00 97 11/15/17 04:00 98.0 104 24 117/85 98 Non-Rebreather 98.0 11/15/17 01:51 100 26 95 Non-Rebreather 15.0 100 11/15/17 01:38 100 11/15/17 01:38 96 20 96 Non-Rebreather 15.0 100 11/15/17 00:00 108 11/15/17 00:00 97.0 102 22 102/63 98 Non-Rebreather 97.0 11/14/17 22:15 108 110/72 11/14/17 20:30 128 26 96 Venturi Mask 14.0 55 11/14/17 20:20 Venturi Mask 14.0 55 11/14/17 20:20 95 Venturi Mask 14.0 55 11/14/17 20:20 100 11/14/17 20:20 118 20 92 Non-Rebreather 15.0 100 Intake and Output 11/14/17 11/15/17 19:00 07:00 Intake Total 530 ml Balance 530 ml IV Total 530 ml # Voids 3 Laboratory Tests Test 11/15/17 09:30 White Blood Count 12.4 K/UL (4.8-10.8) H Red Blood Count 4.12 M/UL (4.20-5.40) L Hemoglobin 12.0 G/DL (12.0-16.0) Hematocrit 37.0 % (37.0-47.0) Mean Corpuscular Volume 90 FL (80-99) Mean Corpuscular Hemoglobin 29.0 PG (27.0-31.0) Mean Corpuscular Hemoglobin Concent 32.3 G/DL (32.0-36.0) Red Cell Distribution Width 12.4 % (11.6-14.8) Platelet Count 257 K/UL (150-450) Mean Platelet Volume 8.4 FL (6.5-10.1) Neutrophils (%) (Auto) % (45.0-75.0) Lymphocytes (%) (Auto) % (20.0-45.0) Monocytes (%) (Auto) % (1.0-10.0) Eosinophils (%) (Auto) % (0.0-3.0) Basophils (%) (Auto) % (0.0-2.0) Differential Total Cells Counted 100 Neutrophils % (Manual) 87 % (45-75) H Lymphocytes % (Manual) 6 % (20-45) L Monocytes % (Manual) 7 % (1-10) Eosinophils % (Manual) 0 % (0-3) Basophils % (Manual) 0 % (0-2) Band Neutrophils 0 % (0-8) Platelet Estimate Adequate Platelet Morphology Normal Red Blood Cell Morphology Normal Sodium Level 143 MMOL/L (136-145) Potassium Level 3.6 MMOL/L (3.5-5.1) Chloride Level 105 MMOL/L (98-107) Carbon Dioxide Level 30 MMOL/L (21-32) Anion Gap 8 mmol/L (5-15) Blood Urea Nitrogen 18 mg/dL (7-18) Creatinine 0.9 MG/DL (0.55-1.30) Estimat Glomerular Filtration Rate mL/min (>60) Glucose Level 130 MG/DL (74-106) H Calcium Level 8.2 MG/DL (8.5-10.1) L Magnesium Level 1.8 MG/DL (1.8-2.4) Total Bilirubin 0.6 MG/DL (0.2-1.0) Aspartate Amino Transf (AST/SGOT) 43 U/L (15-37) H Alanine Aminotransferase (ALT/SGPT) 41 U/L (12-78) Alkaline Phosphatase 82 U/L (46-116) Pro-B-Type Natriuretic Peptide 6311 pg/mL (0-125) H Total Protein 6.9 G/DL (6.4-8.2) Albumin 2.9 G/DL (3.4-5.0) L Globulin 4.0 g/dL Albumin/Globulin Ratio 0.7 (1.0-2.7) L Current Medications Medications (Trade) Dose Ordered Sig/Neo Route PRN Reason Start Time Stop Time Status Last Admin Dose Admin Acetaminophen (Tylenol) 650 mg Q6H PRN ORAL For Pain 11/13/17 22:15 12/13/17 22:14 Amlodipine Besylate (Norvasc) 10 mg DAILY ORAL 11/14/17 09:00 12/14/17 08:59 11/15/17 08:56 Ceftriaxone Sodium 1 gm/ Dextrose 55 ml @ 110 mls/hr Q24H IVPB 11/16/17 00:00 11/23/17 00:00 Donepezil HCl (Aricept) 10 mg QHS ORAL 11/14/17 21:00 12/14/17 20:59 11/14/17 21:05 Duloxetine HCl (Cymbalta) 60 mg DAILY ORAL 11/14/17 09:00 12/14/17 08:59 11/15/17 08:56 Gabapentin (Neurontin) 100 mg BID ORAL 11/14/17 09:00 12/14/17 08:59 11/15/17 17:41 Ipratropium [place] (Atrovent) 500 mcg Q4H PRN HHN Unrelieved Shortness of Breath 11/14/17 14:15 11/19/17 14:14 Ipratropium [place] (Atrovent) 500 mcg Q6HRT HHN 11/14/17 19:00 11/19/17 18:59 11/15/17 19:07 Levalbuterol HCl (Xopenex) 1.25 mg Q4H PRN HHN SOB and wheezing 11/14/17 13:45 11/19/17 13:44 Levalbuterol HCl (Xopenex) 1.25 mg Q6HRT HHN 11/14/17 19:00 11/19/17 18:59 11/15/17 19:09 Magnesium Oxide (Mag-Ox 400mg) 400 mg DAILY ORAL 11/15/17 09:00 12/15/17 08:59 11/15/17 08:56 Metoprolol Tartrate (Lopressor) 12.5 mg Q12HR ORAL 11/14/17 22:00 12/14/17 21:59 11/15/17 08:57 Metronidazole 100 ml @ 100 mls/hr Q8HR IVPB 3/30/18 16:00 11/21/17 15:59 11/15/17 14:33 Mirtazapine (Remeron) 15 mg BEDTIME ORAL 11/14/17 21:00 12/14/17 20:59 11/14/17 21:05 Rivaroxaban (Xarelto) 15 mg DAILY ORAL 11/14/17 15:00 12/14/17 14:59 11/15/17 08:56 Vancomycin HCl (Vanco rx to dose) 1 ea DAILY PRN MISC Per rx protocol 11/13/17 22:15 12/13/17 22:14 Vancomycin HCl 500 mg/Dextrose 275 ml @ 275 mls/hr Q24H IVPB 11/14/17 22:30 11/19/17 22:29 11/14/17 22:34 Height (Feet): 5 Height (Inches): 0.00 Weight (Pounds): 100 General Appearance: no apparent distress, alert Head: normocephalic, atraumatic Eyes: bilateral anicteric ENT: normal voice Neck: full range of motion, no mass Respiratory: no wheezing, rales - at bases, rhonchi - most prominent in RUL Cardiovascular: irregularly irregular Gastrointestinal: normal bowel sounds, non tender, soft, no mass, no organomegaly Musculoskeletal: no calf tenderness Edema: no edema noted Generalized Neurologic: no new focality KALEB GROSS Nov 15, 2017 20:21
[2017-11-15] MEDS: Metoprolol 25mg tab ORAL SCH (21:28)
[2017-11-15] MEDS: Donepezil 10mg tab ORAL SCH (21:28)
[2017-11-15] MEDS: Vancomycin 500mg in D5W 275ml IVPB SCH (22:51)
[2017-11-16] VITALS: BP 110/62
[2017-11-16] MEDS: cefTRIAXone 1 GM in D5W 55 ML IVPB SCH (00:41)
[2017-11-16] MEDS: Ipratropium 0.02% Inh Soln 2.5ml UD HHN SCH ×4 (01:00→19:55)
[2017-11-16] MEDS: Levalbuterol Inh UD 1.25mg/0.5ml HHN SCH ×4 (01:01→19:56)
[2017-11-16 04:00] VITALS: BP 115/59
[2017-11-16 08:00] VITALS: BP 150/75
[2017-11-16] MEDS: Metoprolol 25mg tab ORAL SCH ×2 (08:20→22:08)
[2017-11-16] MEDS: Magnesium Oxide 400mg tab ORAL SCH (08:20)
[2017-11-16] MEDS: DULoxetine 30mg cap ORAL SCH (08:21)
[2017-11-16] MEDS: Xarelto 15mg tab ORAL SCH (08:21)
--- NOTE | 2017-11-16 09:01 | Pulmonology Progress Note ---
Assessment/Plan Problems: (1) Pneumonia (2) Bronchospasm (3) Atrial fibrillation with rapid ventricular response (4) Vascular dementia (5) UTI (urinary tract infection) (6) Acute on chronic diastolic CHF (congestive heart failure), NYHA class 4 Assessment/Plan ASSESSMENT: The patient is an 87-year-old demented female, assisted living resident with a history of Korsakoff syndrome, CHF, COPD, ETOH and tobacco use in the past, paroxysmal atrial fibrillation, presenting with respiratory illness, likely viral URI with superimposed tracheobronchitis/pneumonia, possible aspiration with a component of reactive airway disease and bronchospasm as well as pulmonary edema. PROBLEM LIST: 1. Acute hypoxemic respiratory failure, likely multifactorial. 2. Likely viral upper respiratory tract infection with subsequent tracheobronchitis/pneumonia. 3. Congestive heart failure with a component of acute decompensated heart failure. 4. Bronchospasm and reactive airway disease. 5. Dementia. 6. Korsakoff syndrome. 7. Prior cerebrovascular accident. 8. Questionable underlying history of chronic obstructive pulmonary disease. 9. History of tobacco use in the past. 10. Paroxysmal atrial fibrillation. TREATMENT PLAN: 1. Optimize pulmonary hygiene/mobilize as tolerated. 2. Titrate down FiO2 to keep saturations greater than 90%. 3. Continue Rocephin and Flagyl (D3), D/C Vanco (D3) given neg screen & unlikely MRSA PNA, add Azithro (D1) for atypical coverage 4. Follow sputum culture and respiratory panel. 5. [id number]-[id number] and p.r.n. Atrovent and levalbuterol (Xopenex) handheld nebulizer treatments. 6. Add chest PT QID to help mobilize as tolerated 7. Monitor volumes, gentle diuresis as tolerated -additional 20 mg IV lasix given today 8. Repeat CXR tommorrow 9. Aspiration precautions, swallow evaluation. 10. DVT prophylaxis. The patient is on Xarelto. 11. The patient is DNR/DNI. Subjective Allergies: Coded Allergies: ALCOHOL (Unverified Allergy, Unknown, 11/13/17) Subjective Tm 96.6, VSS, still on 15L NRBFM, oxygenation not improved CXR yesterday with increased RUL infiltrate Inc cough, inc SOB, some wheezing, no F/C, no CP, lubna PO Objective Last 24 Hour Vital Signs Date Time Temp Pulse Resp B/P (MAP) Pulse Ox O2 Delivery O2 Flow Rate FiO2 11/16/17 08:20 114 150/75 11/16/17 07:43 121 22 86 Non-Rebreather 15.0 100 11/16/17 07:39 Non-Rebreather 15.0 100 11/16/17 07:38 94 Non-Rebreather 15.0 100 11/16/17 07:36 117 22 94 Non-Rebreather 15.0 100 11/16/17 04:00 97 11/16/17 04:00 96.6 100 19 115/59 96 Non-Rebreather 96.6 11/16/17 01:10 126 22 98 Non-Rebreather 15.0 100 11/16/17 00:59 100 11/16/17 00:59 134 22 98 Non-Rebreather 15.0 100 11/16/17 00:00 99 11/16/17 00:00 97.7 108 20 110/62 96 Non-Rebreather 97.7 11/15/17 21:28 134 108/71 11/15/17 20:00 116 11/15/17 20:00 97.9 134 22 108/71 98 Non-Rebreather 97.9 11/15/17 19:24 107 22 100 Non-Rebreather 15.0 100 11/15/17 19:04 100 11/15/17 19:04 107 22 100 Non-Rebreather 15.0 100 11/15/17 19:03 Non-Rebreather 15.0 100 11/15/17 19:03 100 Non-Rebreather 15.0 100 11/15/17 16:00 109 11/15/17 16:00 97.9 102 22 108/71 94 Non-Rebreather 97.9 11/15/17 12:38 107 24 96 Non-Rebreather 15.0 100 11/15/17 12:27 106 22 96 Non-Rebreather 15.0 100 11/15/17 12:00 101 11/15/17 12:00 97.9 102 26 107/72 95 Non-Rebreather 97.9 11/15/17 08:57 115 107/73 11/15/17 08:56 115 107/73 Intake and Output 11/15/17 11/16/17 19:00 07:00 Intake Total 455 ml 530 ml Output Total 300 ml Balance 455 ml 230 ml Intake Oral 240 ml IV Total 215 ml 530 ml Output Urine Total 300 ml # Voids 3 General Appearance: no acute distress, cachetic HEENT: normocephalic, atraumatic, anicteric, mucous membranes moist Respiratory/Chest: chest wall non-tender, lungs clear, normal breath sounds, rhonchi - scattered coarse with BiB rales Cardiovascular: normal peripheral pulses, irregularly irregular Abdomen: normal bowel sounds, soft, non tender, no organomegaly, non distended Extremities: no cyanosis, no clubbing, no edema Microbiology Date/Time Source Procedure Growth Status 11/13/17 17:20 Blood Blood Culture - Preliminary NO GROWTH AFTER 48 HOURS Resulted 11/13/17 17:05 Blood Blood Culture - Preliminary NO GROWTH AFTER 48 HOURS Resulted 11/13/17 21:00 Nasal Nares MRSA Culture - Final NO METHICILLIN RESISTANT STAPH AUREUS... Complete 11/13/17 17:25 Nasal Nares Influenza Types A,B Antigen (DIANA) - Final Complete 11/13/17 21:00 Rectum VRE Culture - Final NO VANCOMYCIN RESISTANT ENTEROCOCCUS ... Complete Laboratory Tests 11/15/17 09:30: White Blood Count 12.4H, Red Blood Count 4.12L, Hemoglobin 12.0, Hematocrit 37.0 , Mean Corpuscular Volume 90, Mean Corpuscular Hemoglobin 29.0, Mean Corpuscular Hemoglobin Concent 32.3, Red Cell Distribution Width 12.4, Platelet Count 257, Mean Platelet Volume 8.4, Neutrophils (%) (Auto) , Lymphocytes (%) ( Auto) , Monocytes (%) (Auto) , Eosinophils (%) (Auto) , Basophils (%) (Auto) , Differential Total Cells Counted 100, Neutrophils % (Manual) 87H, Lymphocytes % (Manual) 6L, Monocytes % (Manual) 7, Eosinophils % (Manual) 0, Basophils % ( Manual) 0, Band Neutrophils 0, Platelet Estimate Adequate, Platelet Morphology Normal, Red Blood Cell Morphology Normal, Sodium Level 143, Potassium Level 3.6 , Chloride Level 105, Carbon Dioxide Level 30, Anion Gap 8, Blood Urea Nitrogen 18, Creatinine 0.9, Estimat Glomerular Filtration Rate , Glucose Level 130H, Calcium Level 8.2L, Magnesium Level 1.8, Total Bilirubin 0.6, Aspartate Amino Transf (AST/SGOT) 43H, Alanine Aminotransferase (ALT/SGPT) 41, Alkaline Phosphatase 82, Pro-B-Type Natriuretic Peptide 6311H, Total Protein 6.9, Albumin 2.9L, Globulin 4.0, Albumin/Globulin Ratio 0.7L Current Medications Medications (Trade) Dose Ordered Sig/Neo Route PRN Reason Start Time Stop Time Status Last Admin Dose Admin Acetaminophen (Tylenol) 650 mg Q6H PRN ORAL For Pain 11/13/17 22:15 12/13/17 22:14 Ceftriaxone Sodium 1 gm/ Dextrose 55 ml @ 110 mls/hr Q24H IVPB 11/16/17 00:00 11/23/17 00:00 11/16/17 00:41 Donepezil HCl (Aricept) 10 mg QHS ORAL 11/14/17 21:00 12/14/17 20:59 11/15/17 21:28 Duloxetine HCl (Cymbalta) 60 mg DAILY ORAL 11/14/17 09:00 12/14/17 08:59 11/16/17 08:21 Gabapentin (Neurontin) 100 mg BID ORAL 11/14/17 09:00 12/14/17 08:59 11/16/17 08:20 Ipratropium [place] (Atrovent) 500 mcg Q4H PRN HHN Unrelieved Shortness of Breath 11/14/17 14:15 11/19/17 14:14 Ipratropium [place] (Atrovent) 500 mcg Q6HRT HHN 11/14/17 19:00 11/19/17 18:59 11/16/17 07:36 Levalbuterol HCl (Xopenex) 1.25 mg Q4H PRN HHN SOB and wheezing 11/14/17 13:45 11/19/17 13:44 Levalbuterol HCl (Xopenex) 1.25 mg Q6HRT HHN 11/14/17 19:00 11/19/17 18:59 11/16/17 07:35 Magnesium Oxide (Mag-Ox 400mg) 400 mg DAILY ORAL 11/15/17 09:00 12/15/17 08:59 11/16/17 08:20 Metoprolol Tartrate (Lopressor) 25 mg Q12HR ORAL 11/15/17 21:00 12/14/17 21:59 11/16/17 08:20 Metronidazole 100 ml @ 100 mls/hr Q8HR IVPB 11/14/17 16:00 11/21/17 15:59 11/16/17 05:50 Mirtazapine (Remeron) 15 mg BEDTIME ORAL 11/14/17 21:00 12/14/17 20:59 11/15/17 21:28 Rivaroxaban (Xarelto) 15 mg DAILY ORAL 11/14/17 15:00 12/14/17 14:59 11/16/17 08:21 Vancomycin HCl (Vanco rx to dose) 1 ea DAILY PRN MISC Per rx protocol 11/13/17 22:15 12/13/17 22:14 Vancomycin HCl 500 mg/Dextrose 275 ml @ 275 mls/hr Q24H IVPB 11/14/17 22:30 11/19/17 22:29 11/15/17 22:51 BRIDGETT MORENO M.D. Nov 16, 2017 09:01
[2017-11-16] MEDS ORDERED: Tubing IV Secondary IV ONE (10:26)
[2017-11-16 11:04] LABS: HEMATOCRIT 39.4 % (37.0-47.0); MEAN CORPUSCULAR VOLUME 88 FL (80-99); PLATELET COUNT 284 K/UL (150-450); RED BLOOD COUNT 4.45 M/UL (4.20-5.40); RED CELL DISTRIBUTION WIDTH 12.5 % (11.6-14.8); WHITE BLOOD COUNT 15.7 K/UL (4.8-10.8)
[2017-11-16 11:06] LABS: ANION GAP 9 mmol/L (5-15); BLOOD UREA NITROGEN 21 mg/dL (7-18); CALCIUM 8.5 MG/DL (8.5-10.1); CARBON DIOXIDE 32 MMOL/L (21-32); CHLORIDE 103 MMOL/L (98-107); CREATININE 0.9 MG/DL (0.55-1.30); POTASSIUM 3.1 MMOL/L (3.5-5.1); SODIUM 143 MMOL/L (136-145)
[2017-11-16] MEDS: Azithromycin 500 MG in D5W 275 ML IV SCH (11:28)
[2017-11-16 12:00] VITALS: BP 131/99
[2017-11-16] MEDS ORDERED: Potassium Chloride 40 MEQ in Sodium Chloride 500ML 550 ML IVPB ONE (15:00)
[2017-11-16 15:36] VITALS: BP 136/77
[2017-11-16 20:00] VITALS: BP 150/76
--- NOTE | 2017-11-16 20:55 | Geriatric Progress Note ---
Assessment/Plan Problems: (1) Pneumonia (2) Bronchospasm (3) Acute on chronic diastolic CHF (congestive heart failure), NYHA class 4 (4) Vascular dementia (5) Chronic pain syndrome (6) Anxious depression (7) Atrial fibrillation with rapid ventricular response (8) Respiratory distress (9) Sepsis (10) Dysphagia (11) Encephalopathy (12) Hypokalemia Assessment/Plan Slightly brighter, but still with limited functional recovery, with poor intake , persistent congestion. Await reattempt echo. Await further speech eval. K supplemented. Given persistent tachycardia, will further increase metoprolol. Recheck labs. Attempt to wean O2 as condition improves. Discussed with: hospital staff Subjective Interval Events Patient appears more alert, smiling, appears to deny distress. Apparently pulls off NRBM frequently. Poor intake thus far. Did not tolerate taper in O2. HR still tachycardic. Bps significantly higher off amlodipine. Labs with increase in wbc. CO2, BUN/Cr slightly higher. K drifting lower. Low dose Lasix given by Dr. Chin. Vanco d/c, Azithromycin substituted. Subjective Aphasic non-fluent speech. Geriatric Geriatric Last 24 Hour Vital Signs Date Time Temp Pulse Resp B/P (MAP) Pulse Ox O2 Delivery O2 Flow Rate FiO2 11/16/17 20:05 111 18 95 Non-Rebreather 15.0 100 11/16/17 19:55 100 11/16/17 19:53 94 18 98 Non-Rebreather 15.0 100 11/16/17 19:53 94 Non-Rebreather 15.0 100 11/16/17 19:53 Non-Rebreather 15.0 100 11/16/17 16:00 98 11/16/17 15:36 98.3 111 18 136/77 94 Non-Rebreather 15.0 100 98.3 11/16/17 13:58 105 22 96 Venturi Mask 14.0 55 11/16/17 13:50 82 22 99 Non-Rebreather 15.0 100 11/16/17 12:00 106 11/16/17 12:00 97.9 87 17 131/99 97 Non-Rebreather 15.0 100 97.9 11/16/17 08:20 114 150/75 11/16/17 08:00 97.8 108 19 150/75 97 Non-Rebreather 15.0 100 97.8 11/16/17 08:00 113 11/16/17 07:43 121 22 86 Non-Rebreather 15.0 100 11/16/17 07:39 Non-Rebreather 15.0 100 11/16/17 07:38 94 Non-Rebreather 15.0 100 11/16/17 07:36 117 22 94 Non-Rebreather 15.0 100 11/16/17 04:00 97 11/16/17 04:00 96.6 100 19 115/59 96 Non-Rebreather 96.6 11/16/17 01:10 126 22 98 Non-Rebreather 15.0 100 11/16/17 00:59 100 11/16/17 00:59 134 22 98 Non-Rebreather 15.0 100 11/16/17 00:00 99 11/16/17 00:00 97.7 108 20 110/62 96 Non-Rebreather 97.7 11/15/17 21:28 134 108/71 Intake and Output 11/15/17 11/16/17 19:00 07:00 Intake Total 455 ml 530 ml Output Total 300 ml Balance 455 ml 230 ml Intake Oral 240 ml IV Total 215 ml 530 ml Output Urine Total 300 ml # Voids 3 Laboratory Tests Test 11/16/17 10:15 White Blood Count 15.7 K/UL (4.8-10.8) H Red Blood Count 4.45 M/UL (4.20-5.40) Hemoglobin 13.0 G/DL (12.0-16.0) Hematocrit 39.4 % (37.0-47.0) Mean Corpuscular Volume 88 FL (80-99) Mean Corpuscular Hemoglobin 29.3 PG (27.0-31.0) Mean Corpuscular Hemoglobin Concent 33.1 G/DL (32.0-36.0) Red Cell Distribution Width 12.5 % (11.6-14.8) Platelet Count 284 K/UL (150-450) Mean Platelet Volume 7.2 FL (6.5-10.1) Neutrophils (%) (Auto) % (45.0-75.0) Lymphocytes (%) (Auto) % (20.0-45.0) Monocytes (%) (Auto) % (1.0-10.0) Eosinophils (%) (Auto) % (0.0-3.0) Basophils (%) (Auto) % (0.0-2.0) Differential Total Cells Counted 100 Neutrophils % (Manual) 88 % (45-75) H Lymphocytes % (Manual) 5 % (20-45) L Monocytes % (Manual) 7 % (1-10) Eosinophils % (Manual) 0 % (0-3) Basophils % (Manual) 0 % (0-2) Band Neutrophils 0 % (0-8) Platelet Estimate Adequate Platelet Morphology Normal Red Blood Cell Morphology Normal Sodium Level 143 MMOL/L (136-145) Potassium Level 3.1 MMOL/L (3.5-5.1) L Chloride Level 103 MMOL/L (98-107) Carbon Dioxide Level 32 MMOL/L (21-32) Anion Gap 9 mmol/L (5-15) Blood Urea Nitrogen 21 mg/dL (7-18) H Creatinine 0.9 MG/DL (0.55-1.30) Estimat Glomerular Filtration Rate mL/min (>60) Glucose Level 153 MG/DL (74-106) H Calcium Level 8.5 MG/DL (8.5-10.1) Magnesium Level 2.0 MG/DL (1.8-2.4) Current Medications Medications (Trade) Dose Ordered Sig/Neo Route PRN Reason Start Time Stop Time Status Last Admin Dose Admin Acetaminophen (Tylenol) 650 mg Q6H PRN ORAL For Pain 11/13/17 22:15 12/13/17 22:14 Azithromycin 500 mg/Dextrose 275 ml @ 275 mls/hr Q24HRS IV 11/16/17 11:00 11/22/17 11:59 11/16/17 11:28 Ceftriaxone Sodium 1 gm/ Dextrose 55 ml @ 110 mls/hr Q24H IVPB 11/16/17 00:00 11/23/17 00:00 11/16/17 00:41 Donepezil HCl (Aricept) 10 mg QHS ORAL 11/14/17 21:00 12/14/17 20:59 11/15/17 21:28 Duloxetine HCl (Cymbalta) 60 mg DAILY ORAL 11/14/17 09:00 12/14/17 08:59 11/16/17 08:21 Gabapentin (Neurontin) 100 mg BID ORAL 11/14/17 09:00 12/14/17 08:59 11/16/17 17:20 Ipratropium [place] (Atrovent) 500 mcg Q4H PRN HHN Unrelieved Shortness of Breath 11/14/17 14:15 11/19/17 14:14 Ipratropium [place] (Atrovent) 500 mcg Q6HRT HHN 11/14/17 19:00 11/19/17 18:59 11/16/17 19:55 Levalbuterol HCl (Xopenex) 1.25 mg Q4H PRN HHN SOB and wheezing 11/14/17 13:45 11/19/17 13:44 Levalbuterol HCl (Xopenex) 1.25 mg Q6HRT HHN 11/14/17 19:00 11/19/17 18:59 11/16/17 19:56 Magnesium Oxide (Mag-Ox 400mg) 400 mg DAILY ORAL 11/15/17 09:00 12/15/17 08:59 11/16/17 08:20 Metoprolol Tartrate (Lopressor) 25 mg Q12HR ORAL 11/15/17 21:00 12/14/17 21:59 11/16/17 08:20 Metronidazole 100 ml @ 100 mls/hr Q8HR IVPB 11/14/17 16:00 11/21/17 15:59 11/16/17 13:20 Mirtazapine (Remeron) 15 mg BEDTIME ORAL 11/14/17 21:00 12/14/17 20:59 11/15/17 21:28 Rivaroxaban (Xarelto) 15 mg DAILY ORAL 11/14/17 15:00 12/14/17 14:59 11/16/17 08:21 Height (Feet): 5 Height (Inches): 0.00 Weight (Pounds): 107 General Appearance: no apparent distress, alert Head: normocephalic, atraumatic Eyes: bilateral anicteric Neck: full range of motion, no mass Respiratory: rhonchi - remain diffusely prominent Cardiovascular: irregularly irregular Gastrointestinal: normal bowel sounds, non tender, soft, no mass, no organomegaly, non-distended Musculoskeletal: no calf tenderness Edema: no edema noted Generalized Neurologic: no new focality KALEB GROSS Nov 16, 2017 20:55
[2017-11-16] MEDS: Donepezil 10mg tab ORAL SCH (22:08)
[2017-11-17] VITALS: BP 144/75
[2017-11-17] MEDS: cefTRIAXone 1 GM in D5W 55 ML IVPB SCH ×2 (00:08→23:33)
[2017-11-17] MEDS: Ipratropium 0.02% Inh Soln 2.5ml UD HHN SCH ×4 (01:04→19:26)
[2017-11-17] MEDS: Levalbuterol Inh UD 1.25mg/0.5ml HHN SCH ×4 (01:05→19:26)
[2017-11-17 04:00] VITALS: BP 161/96
[2017-11-17 08:00] VITALS: BP 164/82
[2017-11-17 08:56] LABS: HEMATOCRIT 39.8 % (37.0-47.0); HEMOGLOBIN 12.7 G/DL (12.0-16.0); MEAN CORPUSCULAR VOLUME 90 FL (80-99); PLATELET COUNT 307 K/UL (150-450); RED BLOOD COUNT 4.44 M/UL (4.20-5.40); RED CELL DISTRIBUTION WIDTH 12.5 % (11.6-14.8); WHITE BLOOD COUNT 15.9 K/UL (4.8-10.8)
[2017-11-17] MEDS ORDERED: Metoprolol 25mg tab ORAL SCH ×2 (09:00→21:00)
[2017-11-17 09:27] LABS: ALANINE AMINOTRANSFERASE 30 U/L (12-78); ALBUMIN 2.8 G/DL (3.4-5.0); ALBUMIN/GLOBULIN RATIO 0.7 (1.0-2.7); ALKALINE PHOSPHATASE 78 U/L (46-116); ANION GAP 9 mmol/L (5-15); ASPARTATE AMINO TRANSFERASE 28 U/L (15-37); BILIRUBIN,TOTAL 0.6 MG/DL (0.2-1.0); BLOOD UREA NITROGEN 22 mg/dL (7-18); CALCIUM 8.7 MG/DL (8.5-10.1); CARBON DIOXIDE 30 MMOL/L (21-32); CHLORIDE 108 MMOL/L (98-107); CREATININE 0.9 MG/DL (0.55-1.30); POTASSIUM 3.7 MMOL/L (3.5-5.1); SODIUM 147 MMOL/L (136-145)
[2017-11-17] MEDS: DULoxetine 30mg cap ORAL SCH (09:30)
[2017-11-17] MEDS: Magnesium Oxide 400mg tab ORAL SCH (09:32)
[2017-11-17] MEDS: Xarelto 15mg tab ORAL SCH (09:34)
[2017-11-17] MEDS: Azithromycin 500 MG in D5W 275 ML IV SCH (10:37)
--- NOTE | 2017-11-17 11:13 | Pulmonology Progress Note ---
Assessment/Plan Problems: (1) Pneumonia (2) Bronchospasm (3) Atrial fibrillation with rapid ventricular response (4) Vascular dementia (5) UTI (urinary tract infection) (6) Acute on chronic diastolic CHF (congestive heart failure), NYHA class 4 Assessment/Plan ASSESSMENT: The patient is an 87-year-old demented female, assisted living resident with a history of Korsakoff syndrome, CHF, COPD, ETOH and tobacco use in the past, paroxysmal atrial fibrillation, presenting with respiratory illness, likely viral URI with superimposed tracheobronchitis/pneumonia, possible aspiration with a component of reactive airway disease and bronchospasm as well as pulmonary edema. PROBLEM LIST: 1. Acute hypoxemic respiratory failure, likely multifactorial. 2. Likely viral upper respiratory tract infection with subsequent tracheobronchitis/pneumonia. 3. Congestive heart failure with a component of acute decompensated heart failure. 4. Bronchospasm and reactive airway disease. 5. Dementia. 6. Korsakoff syndrome. 7. Prior cerebrovascular accident. 8. Questionable underlying history of chronic obstructive pulmonary disease. 9. History of tobacco use in the past. 10. Paroxysmal atrial fibrillation. TREATMENT PLAN: 1. Optimize pulmonary hygiene/mobilize as tolerated. 2. Titrate down FiO2 to keep saturations greater than 90%. 3. Continue Rocephin (D4), Flagyl (D4), Azithro (D1) for atypical coverage 4. Follow sputum culture and respiratory panel. 5. Gakxfs-wve-qxvsb and p.r.n. Atrovent and levalbuterol (Xopenex) handheld nebulizer treatments. 6. Continue chest PT QID to help mobilize as tolerated 7. Monitor volumes, gentle diuresis as tolerated -PRN lasix, F/U TTE 8. Repeat CXR 9. Aspiration precautions, swallow evaluation. 10. DVT prophylaxis. The patient is on Xarelto. 11. The patient is DNR/DNI. Subjective Allergies: Coded Allergies: ALCOHOL (Unverified Allergy, Unknown, 11/13/17) Subjective AFVSS, still on 15L NRBFM, oxygenation not improved Per RN and RT no cough, + SOB, no wheezing, no F/C, no CP, lubna PO Objective Last 24 Hour Vital Signs Date Time Temp Pulse Resp B/P (MAP) Pulse Ox O2 Delivery O2 Flow Rate FiO2 11/17/17 10:39 95 22 92 Non-Rebreather 15.0 100 11/17/17 10:32 100 11/17/17 10:29 102 18 95 Non-Rebreather 15.0 100 11/17/17 10:28 96 Non-Rebreather 15.0 100 11/17/17 10:28 Non-Rebreather 15.0 100 11/17/17 09:31 124 164/82 11/17/17 08:00 128 11/17/17 08:00 97.3 105 20 164/82 97 Non-Rebreather 15.0 97.3 11/17/17 04:00 122 11/17/17 04:00 97.9 113 18 161/96 91 Non-Rebreather 15.0 97.9 11/17/17 01:13 105 18 91 Non-Rebreather 15.0 100 11/17/17 01:04 100 11/17/17 01:03 102 18 95 Non-Rebreather 15.0 100 11/17/17 00:00 101 11/17/17 00:00 97.9 107 19 144/75 92 Non-Rebreather 15.0 97.9 11/16/17 22:08 111 150/76 11/16/17 20:05 111 18 95 Non-Rebreather 15.0 100 11/16/17 20:00 98.1 109 19 150/76 94 Non-Rebreather 15.0 98.1 11/16/17 20:00 116 11/16/17 19:55 100 11/16/17 19:53 94 18 98 Non-Rebreather 15.0 100 11/16/17 19:53 94 Non-Rebreather 15.0 100 11/16/17 19:53 Non-Rebreather 15.0 100 11/16/17 16:00 98 11/16/17 15:36 98.3 111 18 136/77 94 Non-Rebreather 15.0 100 98.3 11/16/17 13:58 105 22 96 Venturi Mask 14.0 55 11/16/17 13:50 82 22 99 Non-Rebreather 15.0 100 11/16/17 12:00 106 11/16/17 12:00 97.9 87 17 131/99 97 Non-Rebreather 15.0 100 97.9 Intake and Output 11/16/17 11/17/17 19:00 07:00 Intake Total 802.5 ml 355 ml Balance 802.5 ml 355 ml IV Total 802.5 ml 255 ml Other 100 ml # Voids 5 General Appearance: no acute distress, cachetic, other - eldelry female HEENT: normocephalic, atraumatic, mucous membranes moist Respiratory/Chest: chest wall non-tender, rhonchi - scattered Cardiovascular: normal peripheral pulses, normal rate, regular rhythm Abdomen: normal bowel sounds, soft, non tender, no organomegaly, non distended Extremities: no cyanosis, no clubbing, no edema Laboratory Tests 11/17/17 08:30: White Blood Count 15.9H, Red Blood Count 4.44, Hemoglobin 12.7, Hematocrit 39.8 , Mean Corpuscular Volume 90, Mean Corpuscular Hemoglobin 28.6, Mean Corpuscular Hemoglobin Concent 31.9L, Red Cell Distribution Width 12.5, Platelet Count 307, Mean Platelet Volume 7.0, Neutrophils (%) (Auto) , Lymphocytes (%) (Auto) , Monocytes (%) (Auto) , Eosinophils (%) (Auto) , Basophils (%) (Auto) , Differential Total Cells Counted 100, Neutrophils % ( Manual) 90H, Lymphocytes % (Manual) 6L, Monocytes % (Manual) 4, Eosinophils % ( Manual) 0, Basophils % (Manual) 0, Band Neutrophils 0, Platelet Estimate Adequate, Platelet Morphology Normal, Red Blood Cell Morphology Normal, Sodium Level 147H, Potassium Level 3.7, Chloride Level 108H, Carbon Dioxide Level 30, Anion Gap 9, Blood Urea Nitrogen 22H, Creatinine 0.9, Estimat Glomerular Filtration Rate , Glucose Level 144H, Calcium Level 8.7, Magnesium Level 2.0, Total Bilirubin 0.6, Aspartate Amino Transf (AST/SGOT) 28, Alanine Aminotransferase (ALT/SGPT) 30, Alkaline Phosphatase 78, Pro-B-Type Natriuretic Peptide 5975H, Total Protein 6.9, Albumin 2.8L, Globulin 4.1, Albumin/Globulin Ratio 0.7L Current Medications Medications (Trade) Dose Ordered Sig/Neo Route PRN Reason Start Time Stop Time Status Last Admin Dose Admin Acetaminophen (Tylenol) 650 mg Q6H PRN ORAL For Pain 11/13/17 22:15 4/28/18 22:14 Azithromycin 500 mg/Dextrose 275 ml @ 275 mls/hr Q24HRS IV 11/16/17 11:00 11/22/17 11:59 11/17/17 10:37 Ceftriaxone Sodium 1 gm/ Dextrose 55 ml @ 110 mls/hr Q24H IVPB 11/16/17 00:00 11/23/17 00:00 11/17/17 00:08 Donepezil HCl (Aricept) 10 mg QHS ORAL 11/14/17 21:00 12/14/17 20:59 11/16/17 22:08 Duloxetine HCl (Cymbalta) 60 mg DAILY ORAL 11/14/17 09:00 12/14/17 08:59 11/17/17 09:30 Gabapentin (Neurontin) 100 mg BID ORAL 11/14/17 09:00 12/14/17 08:59 11/17/17 09:29 Ipratropium [place] (Atrovent) 500 mcg Q4H PRN HHN Unrelieved Shortness of Breath 11/14/17 14:15 11/19/17 14:14 Ipratropium [place] (Atrovent) 500 mcg Q6HRT HHN 11/14/17 19:00 11/19/17 18:59 11/17/17 10:21 Levalbuterol HCl (Xopenex) 1.25 mg Q4H PRN HHN SOB and wheezing 11/14/17 13:45 11/19/17 13:44 Levalbuterol HCl (Xopenex) 1.25 mg Q6HRT HHN 11/14/17 19:00 11/19/17 18:59 11/17/17 10:21 Magnesium Oxide (Mag-Ox 400mg) 400 mg DAILY ORAL 11/15/17 09:00 12/15/17 08:59 11/17/17 09:32 Metoprolol Tartrate (Lopressor) 25 mg QHS ORAL 11/17/17 21:00 12/17/17 20:59 Metoprolol Tartrate (Lopressor) 37.5 mg DAILY ORAL 11/17/17 09:00 12/17/17 08:59 11/17/17 09:31 Metronidazole 100 ml @ 100 mls/hr Q8HR IVPB 11/14/17 16:00 11/21/17 15:59 11/17/17 05:31 Mirtazapine (Remeron) 15 mg BEDTIME ORAL 11/14/17 21:00 12/14/17 20:59 11/16/17 22:08 Rivaroxaban (Xarelto) 15 mg DAILY ORAL 11/14/17 15:00 12/14/17 14:59 11/17/17 09:34 BRIDGETT MORENO M.D. Nov 17, 2017 11:13
[2017-11-17 12:00] VITALS: BP 156/96
--- NOTE | 2017-11-17 12:09 | Diagnostic Imaging Report ---
Indication: Shortness of breath Technique: One view of the chest Comparison: 11/15/2017 Findings: Interstitial and airspace disease in the right lung, projecting upper lobe, again demonstrated and appears unchanged. There is suggestion of increasing retrocardiac consolidation. There is a small amount of pleural fluid versus thickening on the right Impression: Unchanged, over 2 days, findings as above.
--- NOTE | 2017-11-17 12:27 | Cardiology Report ---
APPROVED REPORT EXAM: Two-dimensional and M-mode echocardiogram with Doppler and color Doppler. INDICATION Atrial Fibrillation M-Mode DIMENSIONS IVSd0.9 (0.7-1.1cm)Left Atrium (MM)4.6 (1.6-4.0cm) LVDd4.2 (3.5-5.6cm)Aortic Root2.7 (2.0-3.7cm) PWd1.0 (0.7-1.1cm)Aortic Cusp Exc.1.8 (1.5-2.0cm) LVDs2.7 (2.5-4.0cm) PWs1.2 cm Normal left ventricular chamber size, systolic function and wall motion. Left ventricular ejection fraction estimated to be 55-60%. No evidence of left ventricular hypertrophy. No evidence of pericardial or pleural effusion. Mild Bi-atrial enlargement by 2D. Focal aortic valve sclerosis with adequate cusp excursion. Thickened mitral valve leaflets with normal excursion. Mild mitral annulus and aortic root calcification. Pulmonic valve not well visualized. Normal tricuspid valve structure. IVC is normal in size minimal collapse with respiration indicate increased RA pressure. A color flow and spectral Doppler study was performed and revealed: No aortic regurgitation. Severe mitral regurgitation. Mitral diastolic velocities suggest reduced left ventricular relaxation c/w diastolic dysfunction grade 3. Moderate tricuspid regurgitation ( 2jets). Tricuspid systolic velocities suggests peak right ventricular systolic pressure of 43 mmHg Consistent with mild pulmonary hypertension.
[2017-11-17 15:32] VITALS: BP 157/90
--- NOTE | 2017-11-17 17:04 | Geriatric Progress Note ---
Assessment/Plan Problems: (1) Pneumonia (2) Bronchospasm (3) Acute on chronic diastolic CHF (congestive heart failure), NYHA class 4 (4) Vascular dementia (5) Chronic pain syndrome (6) Anxious depression (7) Atrial fibrillation with rapid ventricular response (8) Respiratory distress (9) Sepsis (10) Dysphagia (11) Encephalopathy (12) Hypokalemia Assessment/Plan Still hypoxic except with 100% NRBM. Increasing R sided infiltrates make infectious component more contributory at this time. Add mucomyst and check urine for Legionella. Given improved rate and elevated bp, will change metoprolol to 37.[address] Wasserman asked to evaluate patient. Otherwise, continue present tx. Patient does not appear agitated or uncomfortable, so no specific indication to switch to purely palliative approach yet. Discussed with: hospital staff Subjective Interval Events Patient receiving chest P.T. Appears comfortable, nods that it is OK, but no audible response. Apparently, patient has not tolerated attempts at weaning, with sats dropping to 80%. Suctioning produces small amounts of blood-tinged sputum. Overall congestion appears to be less prominent. Labs with rising wbc, neutrophils, Na up to 147, K supplemented. BUN/Cr rising a little, proBNP still quite elevated. Echo with grade III diastolic dysfunction, normal systolic dysfunction, elevated pulmonary pressures. On monitor patient still tachycardic but less so on increased metoprolol. Bps no borderline hypertensive off amlodipine. CXR with more prominent R sided infiltrates. Little oral intake. No reported discomfort. Subjective Aphasic. Geriatric Geriatric Last 24 Hour Vital Signs Date Time Temp Pulse Resp B/P (MAP) Pulse Ox O2 Delivery O2 Flow Rate FiO2 11/17/17 15:32 98.2 106 24 157/90 95 Non-Rebreather 15.0 98.2 11/17/17 14:11 112 22 92 Non-Rebreather 15.0 100 11/17/17 14:00 100 11/17/17 14:00 105 24 94 Non-Rebreather 15.0 100 11/17/17 13:58 94 Non-Rebreather 15.0 100 11/17/17 12:00 93 11/17/17 12:00 97.9 102 22 156/96 96 Non-Rebreather 15.0 97.9 11/17/17 10:39 95 22 92 Non-Rebreather 15.0 100 11/17/17 10:32 100 11/17/17 10:29 102 18 95 Non-Rebreather 15.0 100 11/17/17 10:28 96 Non-Rebreather 15.0 100 11/17/17 10:28 Non-Rebreather 15.0 100 11/17/17 09:31 124 164/82 11/17/17 08:00 128 11/17/17 08:00 97.3 105 20 164/82 97 Non-Rebreather 15.0 97.3 11/17/17 04:00 122 11/17/17 04:00 97.9 113 18 161/96 91 Non-Rebreather 15.0 97.9 11/17/17 01:13 105 18 91 Non-Rebreather 15.0 100 11/17/17 01:04 100 11/17/17 01:03 102 18 95 Non-Rebreather 15.0 100 11/17/17 00:00 101 11/17/17 00:00 97.9 107 19 144/75 92 Non-Rebreather 15.0 97.9 11/16/17 22:08 111 150/76 11/16/17 20:05 111 18 95 Non-Rebreather 15.0 100 11/16/17 20:00 98.1 109 19 150/76 94 Non-Rebreather 15.0 98.1 11/16/17 20:00 116 11/16/17 19:55 100 11/16/17 19:53 94 18 98 Non-Rebreather 15.0 100 11/16/17 19:53 94 Non-Rebreather 15.0 100 11/16/17 19:53 Non-Rebreather 15.0 100 Intake and Output 11/16/17 11/17/17 19:00 07:00 Intake Total 802.5 ml 355 ml Balance 802.5 ml 355 ml IV Total 802.5 ml 255 ml Other 100 ml # Voids 5 Laboratory Tests Test 11/17/17 08:30 White Blood Count 15.9 K/UL (4.8-10.8) H Red Blood Count 4.44 M/UL (4.20-5.40) Hemoglobin 12.7 G/DL (12.0-16.0) Hematocrit 39.8 % (37.0-47.0) Mean Corpuscular Volume 90 FL (80-99) Mean Corpuscular Hemoglobin 28.6 PG (27.0-31.0) Mean Corpuscular Hemoglobin Concent 31.9 G/DL (32.0-36.0) L Red Cell Distribution Width 12.5 % (11.6-14.8) Platelet Count 307 K/UL (150-450) Mean Platelet Volume 7.0 FL (6.5-10.1) Neutrophils (%) (Auto) % (45.0-75.0) Lymphocytes (%) (Auto) % (20.0-45.0) Monocytes (%) (Auto) % (1.0-10.0) Eosinophils (%) (Auto) % (0.0-3.0) Basophils (%) (Auto) % (0.0-2.0) Differential Total Cells Counted 100 Neutrophils % (Manual) 90 % (45-75) H Lymphocytes % (Manual) 6 % (20-45) L Monocytes % (Manual) 4 % (1-10) Eosinophils % (Manual) 0 % (0-3) Basophils % (Manual) 0 % (0-2) Band Neutrophils 0 % (0-8) Platelet Estimate Adequate Platelet Morphology Normal Red Blood Cell Morphology Normal Sodium Level 147 MMOL/L (136-145) H Potassium Level 3.7 MMOL/L (3.5-5.1) Chloride Level 108 MMOL/L (98-107) H Carbon Dioxide Level 30 MMOL/L (21-32) Anion Gap 9 mmol/L (5-15) Blood Urea Nitrogen 22 mg/dL (7-18) H Creatinine 0.9 MG/DL (0.55-1.30) Estimat Glomerular Filtration Rate mL/min (>60) Glucose Level 144 MG/DL (74-106) H Calcium Level 8.7 MG/DL (8.5-10.1) Magnesium Level 2.0 MG/DL (1.8-2.4) Total Bilirubin 0.6 MG/DL (0.2-1.0) Aspartate Amino Transf (AST/SGOT) 28 U/L (15-37) Alanine Aminotransferase (ALT/SGPT) 30 U/L (12-78) Alkaline Phosphatase 78 U/L (46-116) Pro-B-Type Natriuretic Peptide 5975 pg/mL (0-125) H Total Protein 6.9 G/DL (6.4-8.2) Albumin 2.8 G/DL (3.4-5.0) L Globulin 4.1 g/dL Albumin/Globulin Ratio 0.7 (1.0-2.7) L Current Medications Medications (Trade) Dose Ordered Sig/Neo Route PRN Reason Start Time Stop Time Status Last Admin Dose Admin Acetaminophen (Tylenol) 650 mg Q6H PRN ORAL For Pain 11/13/17 22:15 12/13/17 22:14 Azithromycin 500 mg/Dextrose 275 ml @ 275 mls/hr Q24HRS IV 11/16/17 11:00 11/22/17 11:59 11/17/17 10:37 Ceftriaxone Sodium 1 gm/ Dextrose 55 ml @ 110 mls/hr Q24H IVPB 11/16/17 00:00 11/23/17 00:00 11/17/17 00:08 Donepezil HCl (Aricept) 10 mg QHS ORAL 11/14/17 21:00 12/14/17 20:59 11/16/17 22:08 Duloxetine HCl (Cymbalta) 60 mg DAILY ORAL 11/14/17 09:00 12/14/17 08:59 11/17/17 09:30 Gabapentin (Neurontin) 100 mg BID ORAL 11/14/17 09:00 12/14/17 08:59 11/17/17 09:29 Ipratropium [place] (Atrovent) 500 mcg Q4H PRN HHN Unrelieved Shortness of Breath 11/14/17 14:15 11/19/17 14:14 Ipratropium [place] (Atrovent) 500 mcg Q6HRT HHN 11/14/17 19:00 11/19/17 18:59 11/17/17 13:54 Levalbuterol HCl (Xopenex) 1.25 mg Q4H PRN HHN SOB and wheezing 11/14/17 13:45 11/19/17 13:44 Levalbuterol HCl (Xopenex) 1.25 mg Q6HRT HHN 11/14/17 19:00 11/19/17 18:59 11/17/17 13:54 Magnesium Oxide (Mag-Ox 400mg) 400 mg DAILY ORAL 11/15/17 09:00 12/15/17 08:59 11/17/17 09:32 Metoprolol Tartrate (Lopressor) 25 mg QHS ORAL 11/17/17 21:00 12/17/17 20:59 Metoprolol Tartrate (Lopressor) 37.5 mg DAILY ORAL 11/17/17 09:00 12/17/17 08:59 11/17/17 09:31 Metronidazole 100 ml @ 100 mls/hr Q8HR IVPB 11/14/17 16:00 11/21/17 15:59 11/17/17 12:06 Mirtazapine (Remeron) 15 mg BEDTIME ORAL 11/14/17 21:00 12/14/17 20:59 11/16/17 22:08 Rivaroxaban (Xarelto) 15 mg DAILY ORAL 11/14/17 15:00 12/14/17 14:59 11/17/17 09:34 Height (Feet): 5 Height (Inches): 0.00 Weight (Pounds): 107 General Appearance: no apparent distress, alert Head: normocephalic, atraumatic Eyes: bilateral anicteric Neck: full range of motion, no mass Respiratory: rhonchi - less audible than yesterday. Cardiovascular: irregularly irregular Gastrointestinal: normal bowel sounds, non tender, soft, no mass, no organomegaly, non-distended Musculoskeletal: no calf tenderness Edema: no edema noted Generalized Neurologic: no new focality KALEB GROSS Nov 17, 2017 17:04
--- NOTE | 2017-11-17 19:25 | Consultation ---
Consult Note Consult Note Cardiology/ EP full consult dictated #[id number] SERGEI RENEE Nov 17, 2017 19:25
[2017-11-17] MEDS: Metoprolol 25mg tab ORAL SCH ×2 (19:50→23:47)
[2017-11-17 20:00] VITALS: BP 160/99
[2017-11-17] MEDS: Donepezil 10mg tab ORAL SCH (20:28)
[2017-11-17] MEDS ORDERED: Metoprolol Tartrate 12.5mg TAB ORAL SCH (21:00)
--- NOTE | 2017-11-17 21:30 | Consultation ---
DATE OF CONSULTATION: 11/17/2017 CARDIOLOGY CONSULTATION CONSULTING PHYSICIAN: Ana Wasserman M.D. REQUESTING PHYSICIAN: Chacho Antonio M.D. REASON FOR CONSULTATION: Shortness of breath. HISTORY OF PRESENT ILLNESS: History is obtained from the chart and treating providers as the patient has dementia and is unable to give any history. The patient is an 87-year-old white female with a history of cognitive dysfunction, valvular heart disease, congestive heart failure, previous CVA, hypertension and COPD. She was admitted for congestive heart failure, COPD, hypertension and hyperlipidemia as well as persistent atrial fibrillation. She was brought to the emergency room from the [email or web address] on 11/13/2016 with shortness of breath and respiratory distress. Over the day prior to admission, there was no reported fever, chest pain, or cough. Per the emergency room records, she was hypoxic on room air and tachycardic in atrial fibrillation. She was placed on supplemental oxygen and is currently on nonrebreather mask. Her pulse was 144 beats per minute, rapidly conducted atrial fibrillation and she was started on metoprolol. She was admitted for further treatment. Her urinalysis was positive for white blood cells and bacteria. She was diagnosed with urinary tract infection. She also was noted to have a right-sided infiltrate on chest x-ray, possible pneumonia. She has been evaluated by pulmonary, Dr. Chin and has been started on intravenous antibiotics as well as bronchodilators. Cardiology evaluation was requested for assistance with management of her atrial fibrillation and possible congestive heart failure. PAST MEDICAL HISTORY: As noted above. MEDICATIONS: Metoprolol 37.5 mg p.o. b.i.d., Mucomyst 100 mg inhaled t.i.d., azithromycin 500 mg IV q.24 h., ceftriaxone 1 g IV q.24 h., magnesium oxide 400 mg daily, Aricept 10 mg at bedtime, Remeron 15 mg at bedtime, ipratropium bromide, Atrovent nebulizer q.6 h., Xopenex hand-held nebulizer q.6 h., Flagyl q.8 h., Xarelto 15 mg p.o. daily, Cymbalta 60 mg p.o. daily, Neurontin 100 mg p.o. b.i.d., and Tylenol p.r.n. ALLERGIES: No known drug allergies. SOCIAL HISTORY: Not obtainable from the patient or chart. REVIEW OF SYSTEMS: Not obtainable from the patient or chart. PHYSICAL EXAMINATION: GENERAL: Alert elderly white female who is tachypneic in mild respiratory distress. She responds minimally to questions. VITAL SIGNS: Blood pressure is 157/90, pulse ranges from 106 to 130, irregularly irregular, respiratory rate 24, afebrile, oxygen saturation 95% on nonrebreather mask. HEENT: Pupils are equal, round, and reactive to light. Sclerae anicteric, nonrebreather mask in place. NECK: Supple. There is no jugular venous distention. Carotid pulses are 2+ without bruits. LUNGS: Bilateral diffuse rhonchi, tachypnea, and shallow respirations. HEART: Tachycardic, irregularly irregular. S1 and S2 (difficult to hear heart sounds or rhonchi). ABDOMEN: Soft, nontender, nondistended. No palpable mass. EXTREMITIES: No cyanosis, clubbing, or edema. LABORATORY AND DIAGNOSTIC DATA: Hemoglobin 12.7, white blood count 15,900, and platelets 307,000. Sodium 147, potassium 3.7, bicarbonate 30, chloride 108, BUN 22, and creatinine 0.9, and glucose 144. ProBNP 5975 (6407 on admission). Troponin on admission was 0.005. Lactic acid on admission was 2.3 and repeat 1.7. Chest x-ray shows an extensive right upper lung infiltrate and interstitial edema. EKG shows atrial fibrillation with ventricular rate of 115 beats per minute, left axis -30 degrees, nonspecific T-wave changes. An echo done on 11/13/2017 shows normal left ventricular systolic function, ejection fraction 55% to 60%, there is moderate to severe mitral regurgitation, moderate tricuspid regurgitation, and pulmonary hypertension with PA pressure of 43 mmHg. ASSESSMENT AND RECOMMENDATIONS: The patient is an 87-year-old woman with multiple chronic medical problems as outlined above, who was admitted with respiratory distress and hypoxia. She is being treated for pneumonia and urinary tract infection. She also appears to have a component of congestive heart failure, which appears to be acute diastolic dysfunction and due to her valvular disease, I would recommend treatment with intravenous diuretics with close monitoring of intake and output, weights and electrolytes as well as renal function. Her fluid balance since admission appears positive by just over 300 mL (question accuracy). With regard to her atrial fibrillation, I would recommend continuing Xarelto and we will adjust metoprolol for better ventricular rate control. Further recommendations will be made based on her clinical course. DNR status is noted. Thank you for allowing me to see her in Cardiology and Electrophysiology Consultation. I will be happy to follow her with you. Ana Wasserman M.D. DR: BRYANT JOB#: [id number] CC:
[2017-11-18] VITALS: BP 152/98
[2017-11-18] MEDS: Levalbuterol Inh UD 1.25mg/0.5ml HHN SCH ×4 (01:00→19:00)
[2017-11-18] MEDS: Ipratropium 0.02% Inh Soln 2.5ml UD HHN SCH ×4 (01:00→19:00)
[2017-11-18 04:00] VITALS: BP 166/98
[2017-11-18] MEDS: Metoprolol 25mg tab ORAL SCH ×3 (05:56→17:10)
--- NOTE | 2017-11-18 07:58 | Pulmonology Progress Note ---
Assessment/Plan Problems: (1) Pneumonia (2) Bronchospasm (3) Atrial fibrillation with rapid ventricular response (4) Vascular dementia (5) UTI (urinary tract infection) (6) Acute on chronic diastolic CHF (congestive heart failure), NYHA class 4 Assessment/Plan ASSESSMENT: The patient is an 87-year-old demented female, assisted living resident with a history of Korsakoff syndrome, CHF, COPD, ETOH and tobacco use in the past, paroxysmal atrial fibrillation, presenting with respiratory illness, likely viral URI with superimposed tracheobronchitis/pneumonia, possible aspiration with a component of reactive airway disease and bronchospasm as well as pulmonary edema. PROBLEM LIST: 1. Acute hypoxemic respiratory failure, likely multifactorial. 2. Likely viral upper respiratory tract infection with subsequent tracheobronchitis/pneumonia. 3. Congestive heart failure with a component of acute decompensated heart failure. 4. Bronchospasm and reactive airway disease. 5. Dementia. 6. Korsakoff syndrome. 7. Prior cerebrovascular accident. 8. Questionable underlying history of chronic obstructive pulmonary disease. 9. History of tobacco use in the past. 10. Paroxysmal atrial fibrillation. TREATMENT PLAN: 1. Optimize pulmonary hygiene/mobilize as tolerated. 2. Titrate down FiO2 to keep saturations greater than 90%. 3. Continue Rocephin (D5), Flagyl (D5), Azithro (D2) for atypical coverage 4. Follow sputum culture and respiratory panel. 5. Zzunrf-zvo-ksczi and p.r.n. Atrovent and levalbuterol (Xopenex) handheld nebulizer treatments. 6. Continue chest PT QID to help mobilize secretion 7. Continue mucomyst HHN's BID 7. Monitor volumes, gentle diuresis as tolerated - lasix for negative fluid balance, F/U TTE 8. F/U cards recs 9. Aspiration precautions, swallow evaluation. 10. DVT prophylaxis. The patient is on Xarelto. 11. The patient is DNR/DNI. Subjective Allergies: Coded Allergies: ALCOHOL (Unverified Allergy, Unknown, 11/13/17) Subjective AFVSS, still on 15L NRBFM, oxygenation not improved No cough, + SOB, no wheezing, no F/C, no CP, lubna PO Received additional lasix yesterday D/W Dr. Wasserman agree with continued diuresis Objective Last 24 Hour Vital Signs Date Time Temp Pulse Resp B/P (MAP) Pulse Ox O2 Delivery O2 Flow Rate FiO2 11/18/17 05:56 114 165/86 11/18/17 04:00 111 11/18/17 04:00 97.2 107 24 166/98 94 Non-Rebreather 15.0 97.2 11/18/17 01:14 103 26 89 Non-Rebreather 15.0 100 11/18/17 01:14 36 11/18/17 01:14 104 28 94 Non-Rebreather 15.0 100 11/18/17 00:00 120 11/18/17 00:00 98.2 124 24 152/98 94 Non-Rebreather 15.0 98.2 11/17/17 23:47 120 152/98 11/17/17 20:00 127 11/17/17 20:00 98.8 107 24 160/99 92 Non-Rebreather 15.0 98.8 11/17/17 19:50 114 160/99 11/17/17 19:25 94 Non-Rebreather 15.0 100 11/17/17 19:25 Non-Rebreather 15.0 100 11/17/17 19:18 122 24 88 Non-Rebreather 15.0 100 11/17/17 19:10 36 11/17/17 19:10 110 26 93 Non-Rebreather 15.0 100 11/17/17 15:32 98.2 106 24 157/90 95 Non-Rebreather 15.0 98.2 11/17/17 14:11 112 22 92 Non-Rebreather 15.0 100 11/17/17 14:00 100 11/17/17 14:00 105 24 94 Non-Rebreather 15.0 100 11/17/17 13:58 94 Non-Rebreather 15.0 100 11/17/17 12:00 93 11/17/17 12:00 97.9 102 22 156/96 96 Non-Rebreather 15.0 97.9 11/17/17 10:39 95 22 92 Non-Rebreather 15.0 100 11/17/17 10:32 100 11/17/17 10:29 102 18 95 Non-Rebreather 15.0 100 11/17/17 10:28 96 Non-Rebreather 15.0 100 11/17/17 10:28 Non-Rebreather 15.0 100 11/17/17 09:31 124 164/82 11/17/17 08:00 128 11/17/17 08:00 97.3 105 20 164/82 97 Non-Rebreather 15.0 97.3 Intake and Output 11/17/17 11/18/17 19:00 07:00 Intake Total 255 ml Balance 255 ml IV Total 255 ml # Voids 3 4 # Bowel Movements 1 3 General Appearance: no acute distress, cachetic HEENT: normocephalic, mucous membranes moist Respiratory/Chest: rhonchi Cardiovascular: irregularly irregular Abdomen: normal bowel sounds, soft, non tender, no organomegaly, non distended , no mass Extremities: no cyanosis, no clubbing, no edema Laboratory Tests 11/17/17 08:30: White Blood Count 15.9H, Red Blood Count 4.44, Hemoglobin 12.7, Hematocrit 39.8 , Mean Corpuscular Volume 90, Mean Corpuscular Hemoglobin 28.6, Mean Corpuscular Hemoglobin Concent 31.9L, Red Cell Distribution Width 12.5, Platelet Count 307, Mean Platelet Volume 7.0, Neutrophils (%) (Auto) , Lymphocytes (%) (Auto) , Monocytes (%) (Auto) , Eosinophils (%) (Auto) , Basophils (%) (Auto) , Differential Total Cells Counted 100, Neutrophils % ( Manual) 90H, Lymphocytes % (Manual) 6L, Monocytes % (Manual) 4, Eosinophils % ( Manual) 0, Basophils % (Manual) 0, Band Neutrophils 0, Platelet Estimate Adequate, Platelet Morphology Normal, Red Blood Cell Morphology Normal, Sodium Level 147H, Potassium Level 3.7, Chloride Level 108H, Carbon Dioxide Level 30, Anion Gap 9, Blood Urea Nitrogen 22H, Creatinine 0.9, Estimat Glomerular Filtration Rate , Glucose Level 144H, Calcium Level 8.7, Magnesium Level 2.0, Total Bilirubin 0.6, Aspartate Amino Transf (AST/SGOT) 28, Alanine Aminotransferase (ALT/SGPT) 30, Alkaline Phosphatase 78, Pro-B-Type Natriuretic Peptide 5975H, Total Protein 6.9, Albumin 2.8L, Globulin 4.1, Albumin/Globulin Ratio 0.7L 11/18/17 02:50: Urine Legionella Antigen [Pending] Current Medications Medications (Trade) Dose Ordered Sig/Neo Route PRN Reason Start Time Stop Time Status Last Admin Dose Admin Acetaminophen (Tylenol) 650 mg Q6H PRN ORAL For Pain 11/13/17 22:15 12/13/17 22:14 Acetylcysteine (Mucomyst) 100 mg TIDRT INH 11/17/17 19:00 12/17/17 18:59 Azithromycin 500 mg/Dextrose 275 ml @ 275 mls/hr Q24HRS IV 11/16/17 11:00 11/22/17 11:59 11/17/17 10:37 Ceftriaxone Sodium 1 gm/ Dextrose 55 ml @ 110 mls/hr Q24H IVPB 11/16/17 00:00 11/23/17 00:00 11/17/17 23:33 Donepezil HCl (Aricept) 10 mg QHS ORAL 11/14/17 21:00 12/14/17 20:59 11/17/17 20:28 Duloxetine HCl (Cymbalta) 60 mg DAILY ORAL 11/14/17 09:00 12/14/17 08:59 11/17/17 09:30 Gabapentin (Neurontin) 100 mg BID ORAL 11/14/17 09:00 12/14/17 08:59 11/17/17 18:01 Ipratropium [place] (Atrovent) 500 mcg Q4H PRN HHN Unrelieved Shortness of Breath 11/14/17 14:15 11/19/17 14:14 Ipratropium [place] (Atrovent) 500 mcg Q6HRT HHN 11/14/17 19:00 11/19/17 18:59 11/18/17 01:00 Levalbuterol HCl (Xopenex) 1.25 mg Q4H PRN HHN SOB and wheezing 11/14/17 13:45 11/19/17 13:44 Levalbuterol HCl (Xopenex) 1.25 mg Q6HRT HHN 11/14/17 19:00 11/19/17 18:59 11/18/17 01:00 Magnesium Oxide (Mag-Ox 400mg) 400 mg DAILY ORAL 11/15/17 09:00 12/15/17 08:59 11/17/17 09:32 Metoprolol Tartrate (Lopressor) 25 mg Q6HR ORAL 11/17/17 19:35 12/17/17 19:34 11/18/17 05:56 Metronidazole 100 ml @ 100 mls/hr Q8HR IVPB 11/14/17 16:00 11/21/17 15:59 11/18/17 05:33 Mirtazapine (Remeron) 15 mg BEDTIME ORAL 11/14/17 21:00 12/14/17 20:59 11/17/17 20:28 Rivaroxaban (Xarelto) 15 mg DAILY ORAL 11/14/17 15:00 12/14/17 14:59 11/17/17 09:34 BRIDGETT MORENO M.D. Nov 18, 2017 07:58
[2017-11-18 08:00] VITALS: BP 164/107
[2017-11-18 09:20] LABS: HEMATOCRIT 44.8 % (37.0-47.0); HEMOGLOBIN 14.6 G/DL (12.0-16.0); MEAN CORPUSCULAR VOLUME 90 FL (80-99); PLATELET COUNT 287 K/UL (150-450); RED CELL DISTRIBUTION WIDTH 12.4 % (11.6-14.8); WHITE BLOOD COUNT 19.3 K/UL (4.8-10.8)
[2017-11-18 09:21] LABS: ANION GAP 10 mmol/L (5-15); BLOOD UREA NITROGEN 30 mg/dL (7-18); CALCIUM 8.5 MG/DL (8.5-10.1); CARBON DIOXIDE 34 MMOL/L (21-32); CHLORIDE 109 MMOL/L (98-107); CREATININE 1.2 MG/DL (0.55-1.30); SODIUM 152 MMOL/L (136-145)
[2017-11-18] MEDS: Magnesium Oxide 400mg tab ORAL SCH (09:39)
[2017-11-18] MEDS: Xarelto 15mg tab ORAL SCH (09:39)
[2017-11-18] MEDS: DULoxetine 30mg cap ORAL SCH (09:39)
[2017-11-18] MEDS: Azithromycin 500 MG in D5W 275 ML IV SCH (11:24)
[2017-11-18 12:00] VITALS: BP 162/117
[2017-11-18] MEDS ORDERED: Potassium Chloride 40 MEQ in Sodium Chloride 500ML 550 ML IVPB ONE (13:30)
[2017-11-18] MEDS ORDERED: Tubing IV Secondary IV ONE (14:06)
[2017-11-18] MEDS ORDERED: NS 275ml ONE (14:06)
[2017-11-18 16:00] VITALS: BP 137/90
--- NOTE | 2017-11-18 16:07 | Geriatric Progress Note ---
Assessment/Plan Problems: (1) Pneumonia (2) Bronchospasm (3) Acute on chronic diastolic CHF (congestive heart failure), NYHA class 4 (4) Vascular dementia (5) Chronic pain syndrome (6) Anxious depression (7) Atrial fibrillation with rapid ventricular response (8) Respiratory distress (9) Sepsis (10) Dysphagia (11) Encephalopathy (12) Hypokalemia Assessment/Plan Now less alert, with marked increase in wbc, proBNP. Some yeast in sputum. Dr. Puga asked to evaluate. ? if embolic phenomena could be involved, but patient is on Xarelto. If patient does not turn around, prognosis will be very poor. Discussed with Dtryan Naidu by phone last p.m. With dtryan Ace at bedside. Continue current approach, but consider pure palliation if further worsening or evidence of significant discomfort. Recheck labs. Discussed with: family, hospital staff Subjective Interval Events Patient less responsive today, can not get her to open eyes. No overt distress otherwise. No significant intake, no diarrhea reported. No fever noted. Discussed with Dr. Wasserman, significant valvular disease may be factor in current presentation. Additional diuresis attempted. Bp higher, nurses report poor compliance with oral meds due to mental status. Asked they contact Dr. Wasserman about ? IV dosing. Noted increase in wbc to 19.3, Hct up with diuresis. ProBNP markedly increased. Subjective No response. Geriatric Geriatric Last 24 Hour Vital Signs Date Time Temp Pulse Resp B/P (MAP) Pulse Ox O2 Delivery O2 Flow Rate FiO2 11/18/17 13:41 129 35 94 Venturi Mask 15.0 100 11/18/17 13:19 118 25 98 Non-Rebreather 15.0 100 11/18/17 12:45 106 162/107 11/18/17 12:00 97.1 106 24 162/117 96 Non-Rebreather 15.0 97.1 11/18/17 08:48 104 26 89 Non-Rebreather 15.0 100 11/18/17 08:40 Non-Rebreather 15.0 100 11/18/17 08:39 96 Non-Rebreather 15.0 100 11/18/17 08:37 122 28 96 Non-Rebreather 15.0 100 11/18/17 08:00 97.7 122 24 164/107 96 Non-Rebreather 15.0 97.7 11/18/17 05:56 114 165/86 11/18/17 04:00 111 11/18/17 04:00 97.2 107 24 166/98 94 Non-Rebreather 15.0 97.2 11/18/17 01:14 103 26 89 Non-Rebreather 15.0 100 11/18/17 01:14 36 11/18/17 01:14 104 28 94 Non-Rebreather 15.0 100 11/18/17 00:00 120 11/18/17 00:00 98.2 124 24 152/98 94 Non-Rebreather 15.0 98.2 11/17/17 23:47 120 152/98 11/17/17 20:00 127 11/17/17 20:00 98.8 107 24 160/99 92 Non-Rebreather 15.0 98.8 11/17/17 19:50 114 160/99 11/17/17 19:25 94 Non-Rebreather 15.0 100 11/17/17 19:25 Non-Rebreather 15.0 100 11/17/17 19:18 122 24 88 Non-Rebreather 15.0 100 11/17/17 19:10 36 11/17/17 19:10 110 26 93 Non-Rebreather 15.0 100 Intake and Output 11/17/17 11/18/17 19:00 07:00 Intake Total 255 ml Balance 255 ml IV Total 255 ml # Voids 3 4 # Bowel Movements 1 3 Laboratory Tests Test 11/18/17 02:50 11/18/17 08:10 Urine Legionella Antigen Pending White Blood Count 19.3 K/UL (4.8-10.8) H Red Blood Count 5.00 M/UL (4.20-5.40) Hemoglobin 14.6 G/DL (12.0-16.0) Hematocrit 44.8 % (37.0-47.0) Mean Corpuscular Volume 90 FL (80-99) Mean Corpuscular Hemoglobin 29.3 PG (27.0-31.0) Mean Corpuscular Hemoglobin Concent 32.6 G/DL (32.0-36.0) Red Cell Distribution Width 12.4 % (11.6-14.8) Platelet Count 287 K/UL (150-450) Mean Platelet Volume 8.3 FL (6.5-10.1) Neutrophils (%) (Auto) % (45.0-75.0) Lymphocytes (%) (Auto) % (20.0-45.0) Monocytes (%) (Auto) % (1.0-10.0) Eosinophils (%) (Auto) % (0.0-3.0) Basophils (%) (Auto) % (0.0-2.0) Differential Total Cells Counted 100 Neutrophils % (Manual) 91 % (45-75) H Lymphocytes % (Manual) 5 % (20-45) L Monocytes % (Manual) 4 % (1-10) Eosinophils % (Manual) 0 % (0-3) Basophils % (Manual) 0 % (0-2) Band Neutrophils 0 % (0-8) Platelet Estimate Adequate Platelet Morphology Normal Red Blood Cell Morphology Normal Sodium Level 152 MMOL/L (136-145) H Potassium Level 3.0 MMOL/L (3.5-5.1) L Chloride Level 109 MMOL/L (98-107) H Carbon Dioxide Level 34 MMOL/L (21-32) H Anion Gap 10 mmol/L (5-15) Blood Urea Nitrogen 30 mg/dL (7-18) H Creatinine 1.2 MG/DL (0.55-1.30) Estimat Glomerular Filtration Rate mL/min (>60) Glucose Level 148 MG/DL (74-106) H Calcium Level 8.5 MG/DL (8.5-10.1) Pro-B-Type Natriuretic Peptide 03027 pg/mL (0-125) H Current Medications Medications (Trade) Dose Ordered Sig/Neo Route PRN Reason Start Time Stop Time Status Last Admin Dose Admin Acetaminophen (Tylenol) 650 mg Q6H PRN ORAL For Pain 11/13/17 22:15 12/13/17 22:14 Acetylcysteine (Mucomyst) 100 mg TIDRT INH 11/17/17 19:00 12/17/17 18:59 11/18/17 13:17 Azithromycin 500 mg/Dextrose 275 ml @ 275 mls/hr Q24HRS IV 11/16/17 11:00 11/22/17 11:59 11/18/17 11:24 Ceftriaxone Sodium 1 gm/ Dextrose 55 ml @ 110 mls/hr Q24H IVPB 11/16/17 00:00 11/23/17 00:00 11/17/17 23:33 Donepezil HCl (Aricept) 10 mg QHS ORAL 11/14/17 21:00 12/14/17 20:59 11/17/17 20:28 Duloxetine HCl (Cymbalta) 60 mg DAILY ORAL 11/14/17 09:00 12/14/17 08:59 11/18/17 09:39 Gabapentin (Neurontin) 100 mg BID ORAL 11/14/17 09:00 12/14/17 08:59 11/18/17 09:39 Ipratropium [place] (Atrovent) 500 mcg Q4H PRN HHN Unrelieved Shortness of Breath 11/14/17 14:15 11/19/17 14:14 Ipratropium [place] (Atrovent) 500 mcg Q6HRT HHN 11/14/17 19:00 11/19/17 18:59 11/18/17 13:17 Levalbuterol HCl (Xopenex) 1.25 mg Q4H PRN HHN SOB and wheezing 11/14/17 13:45 11/19/17 13:44 Levalbuterol HCl (Xopenex) 1.25 mg Q6HRT HHN 11/14/17 19:00 11/19/17 18:59 11/18/17 13:17 Magnesium Oxide (Mag-Ox 400mg) 400 mg DAILY ORAL 11/15/17 09:00 12/15/17 08:59 11/18/17 09:39 Metoprolol Tartrate (Lopressor) 25 mg Q6HR ORAL 11/17/17 19:35 12/17/17 19:34 11/18/17 12:45 Metronidazole 100 ml @ 100 mls/hr Q8HR IVPB 11/14/17 16:00 11/21/17 15:59 11/18/17 15:15 Mirtazapine (Remeron) 15 mg BEDTIME ORAL 11/14/17 21:00 12/14/17 20:59 11/17/17 20:28 Potassium Chloride 40 meq/ Sodium Chloride 570 ml @ 142.5 mls/ hr ONCE ONCE IVPB 11/18/17 13:30 11/18/17 17:29 11/18/17 15:04 Rivaroxaban (Xarelto) 15 mg DAILY ORAL 11/14/17 15:00 12/14/17 14:59 11/18/17 09:39 Height (Feet): 5 Height (Inches): 0.00 Weight (Pounds): 105 General Appearance: no apparent distress, other - eyes closed. Head: normocephalic, atraumatic Neck: full range of motion, no mass Respiratory: rhonchi Cardiovascular: irregularly irregular Gastrointestinal: normal bowel sounds, non tender, soft, no mass, no organomegaly, non-distended Musculoskeletal: no calf tenderness Edema: no edema noted Generalized Neurologic: no new focality KALEB GROSS Nov 18, 2017 16:07
--- NOTE | 2017-11-18 17:43 | Infectious Diseases Prog Note ---
Assessment/Plan Assessment/Plan Full consult dictated: A) 1) sepsis, pna, fungemia risk, sob/hypoxia, leukocytosis worsening 2) no diarrhea to suggest c.diff. 3) pmh noted P) 1) zosyn, vancomycin and diflucan, 2) check sputum culture, uc/bc, labs and chest x-ray 3) thanks Subjective Allergies: Coded Allergies: ALCOHOL (Unverified Allergy, Unknown, 11/13/17) Objective Vital Signs Last 24 Hour Vital Signs Date Time Temp Pulse Resp B/P (MAP) Pulse Ox O2 Delivery O2 Flow Rate FiO2 11/18/17 16:00 97.7 103 24 137/90 95 Non-Rebreather 15.0 97.7 11/18/17 16:00 126 11/18/17 13:41 129 35 94 Venturi Mask 15.0 100 11/18/17 13:19 118 25 98 Non-Rebreather 15.0 100 11/18/17 12:45 106 162/107 11/18/17 12:00 97.1 106 24 162/117 96 Non-Rebreather 15.0 97.1 11/18/17 12:00 120 11/18/17 08:48 104 26 89 Non-Rebreather 15.0 100 11/18/17 08:40 Non-Rebreather 15.0 100 11/18/17 08:39 96 Non-Rebreather 15.0 100 11/18/17 08:37 122 28 96 Non-Rebreather 15.0 100 11/18/17 08:00 111 11/18/17 08:00 97.7 122 24 164/107 96 Non-Rebreather 15.0 97.7 11/18/17 05:56 114 165/86 11/18/17 04:00 111 11/18/17 04:00 97.2 107 24 166/98 94 Non-Rebreather 15.0 97.2 11/18/17 01:14 103 26 89 Non-Rebreather 15.0 100 11/18/17 01:14 36 11/18/17 01:14 104 28 94 Non-Rebreather 15.0 100 11/18/17 00:00 120 11/18/17 00:00 98.2 124 24 152/98 94 Non-Rebreather 15.0 98.2 11/17/17 23:47 120 152/98 4/2/18 20:00 127 11/17/17 20:00 98.8 107 24 160/99 92 Non-Rebreather 15.0 98.8 11/17/17 19:50 114 160/99 11/17/17 19:25 94 Non-Rebreather 15.0 100 11/17/17 19:25 Non-Rebreather 15.0 100 11/17/17 19:18 122 24 88 Non-Rebreather 15.0 100 11/17/17 19:10 36 11/17/17 19:10 110 26 93 Non-Rebreather 15.0 100 Height (Feet): 5 Height (Inches): 0.00 Weight (Pounds): 105 Microbiology Date/Time Source Procedure Growth Status 11/17/17 04:40 Sputum Induced Gram Stain - Final Resulted 11/17/17 04:40 Sputum Induced Sputum Culture Pending Resulted Laboratory Tests Test 11/18/17 02:50 11/18/17 08:10 Urine Legionella Antigen Pending White Blood Count 19.3 K/UL (4.8-10.8) H Red Blood Count 5.00 M/UL (4.20-5.40) Hemoglobin 14.6 G/DL (12.0-16.0) Hematocrit 44.8 % (37.0-47.0) Mean Corpuscular Volume 90 FL (80-99) Mean Corpuscular Hemoglobin 29.3 PG (27.0-31.0) Mean Corpuscular Hemoglobin Concent 32.6 G/DL (32.0-36.0) Red Cell Distribution Width 12.4 % (11.6-14.8) Platelet Count 287 K/UL (150-450) Mean Platelet Volume 8.3 FL (6.5-10.1) Neutrophils (%) (Auto) % (45.0-75.0) Lymphocytes (%) (Auto) % (20.0-45.0) Monocytes (%) (Auto) % (1.0-10.0) Eosinophils (%) (Auto) % (0.0-3.0) Basophils (%) (Auto) % (0.0-2.0) Differential Total Cells Counted 100 Neutrophils % (Manual) 91 % (45-75) H Lymphocytes % (Manual) 5 % (20-45) L Monocytes % (Manual) 4 % (1-10) Eosinophils % (Manual) 0 % (0-3) Basophils % (Manual) 0 % (0-2) Band Neutrophils 0 % (0-8) Platelet Estimate Adequate Platelet Morphology Normal Red Blood Cell Morphology Normal Sodium Level 152 MMOL/L (136-145) H Potassium Level 3.0 MMOL/L (3.5-5.1) L Chloride Level 109 MMOL/L (98-107) H Carbon Dioxide Level 34 MMOL/L (21-32) H Anion Gap 10 mmol/L (5-15) Blood Urea Nitrogen 30 mg/dL (7-18) H Creatinine 1.2 MG/DL (0.55-1.30) Estimat Glomerular Filtration Rate mL/min (>60) Glucose Level 148 MG/DL (74-106) H Calcium Level 8.5 MG/DL (8.5-10.1) Pro-B-Type Natriuretic Peptide 53686 pg/mL (0-125) H Current Medications Medications (Trade) Dose Ordered Sig/Neo Route PRN Reason Start Time Stop Time Status Last Admin Dose Admin Acetaminophen (Tylenol) 650 mg Q6H PRN ORAL For Pain 11/13/17 22:15 12/13/17 22:14 Acetylcysteine (Mucomyst) 100 mg TIDRT INH 11/17/17 19:00 12/17/17 18:59 11/18/17 13:17 Azithromycin 500 mg/Dextrose 275 ml @ 275 mls/hr Q24HRS IV 11/16/17 11:00 11/22/17 11:59 11/18/17 11:24 Ceftriaxone Sodium 1 gm/ Dextrose 55 ml @ 110 mls/hr Q24H IVPB 11/16/17 00:00 11/23/17 00:00 11/17/17 23:33 Donepezil HCl (Aricept) 10 mg QHS ORAL 11/14/17 21:00 12/14/17 20:59 11/17/17 20:28 Duloxetine HCl (Cymbalta) 60 mg DAILY ORAL 11/14/17 09:00 12/14/17 08:59 11/18/17 09:39 Gabapentin (Neurontin) 100 mg BID ORAL 11/14/17 09:00 12/14/17 08:59 11/18/17 09:39 Ipratropium [place] (Atrovent) 500 mcg Q4H PRN HHN Unrelieved Shortness of Breath 11/14/17 14:15 11/19/17 14:14 Ipratropium [place] (Atrovent) 500 mcg Q6HRT HHN 11/14/17 19:00 11/19/17 18:59 11/18/17 13:17 Levalbuterol HCl (Xopenex) 1.25 mg Q4H PRN HHN SOB and wheezing 11/14/17 13:45 11/19/17 13:44 Levalbuterol HCl (Xopenex) 1.25 mg Q6HRT HHN 11/14/17 19:00 11/19/17 18:59 11/18/17 13:17 Magnesium Oxide (Mag-Ox 400mg) 400 mg DAILY ORAL 11/15/17 09:00 12/15/17 08:59 11/18/17 09:39 Metoprolol Tartrate (Lopressor) 25 mg Q6HR ORAL 11/17/17 19:35 12/17/17 19:34 11/18/17 12:45 Metronidazole 100 ml @ 100 mls/hr Q8HR IVPB 11/14/17 16:00 11/21/17 15:59 11/18/17 15:15 Mirtazapine (Remeron) 15 mg BEDTIME ORAL 11/14/17 21:00 12/14/17 20:59 11/17/17 20:28 Potassium Chloride 40 meq/ Sodium Chloride 570 ml @ 142.5 mls/ hr ONCE ONCE IVPB 11/18/17 13:30 11/18/17 17:29 11/18/17 15:04 Rivaroxaban (Xarelto) 15 mg DAILY ORAL 11/14/17 15:00 12/14/17 14:59 11/18/17 09:39 BRAD DAVID Nov 18, 2017 17:43
--- NOTE | 2017-11-18 18:22 | Cardiology Progress Note ---
Assessment/Plan Problem List: (1) UTI (urinary tract infection) (2) Atrial fibrillation with rapid ventricular response (3) Pneumonia (4) Acute on chronic diastolic CHF (congestive heart failure), NYHA class 4 (5) Sepsis Status: not improved, deteriorating Status Narrative Mrs. Amin is has R UL pneumonia, ? aspiration, and CHF ( diastolic and due to vascular disease) Contiue diuresis w/ lasix, w/ K supplement. Will also give D5w, as pt now w/ hypernatremia. 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 Appears w/ vol overload, and increasing BNP supplement K IV d5w for hypernatremia. Change metoprolol to iv. Check labs in am. dw/ RN Subjective ROS Limited/Unobtainable: Yes Subjective Cardiac EP/ Cardiology Mrs. Amin is non verbal. She does not appear in respiratory distress. Events noted. Objective Last 24 Hour Vital Signs Date Time Temp Pulse Resp B/P (MAP) Pulse Ox O2 Delivery O2 Flow Rate FiO2 11/18/17 17:10 126 137/90 11/18/17 16:00 97.7 103 24 137/90 95 Non-Rebreather 15.0 97.7 11/18/17 16:00 126 11/18/17 13:41 129 35 94 Venturi Mask 15.0 100 11/18/17 13:19 118 25 98 Non-Rebreather 15.0 100 11/18/17 12:45 106 162/107 11/18/17 12:00 97.1 106 24 162/117 96 Non-Rebreather 15.0 97.1 11/18/17 12:00 120 11/18/17 08:48 104 26 89 Non-Rebreather 15.0 100 11/18/17 08:40 Non-Rebreather 15.0 100 11/18/17 08:39 96 Non-Rebreather 15.0 100 11/18/17 08:37 122 28 96 Non-Rebreather 15.0 100 11/18/17 08:00 111 11/18/17 08:00 97.7 122 24 164/107 96 Non-Rebreather 15.0 97.7 11/18/17 05:56 114 165/86 11/18/17 04:00 111 11/18/17 04:00 97.2 107 24 166/98 94 Non-Rebreather 15.0 97.2 11/18/17 01:14 103 26 89 Non-Rebreather 15.0 100 11/18/17 01:14 36 11/18/17 01:14 104 28 94 Non-Rebreather 15.0 100 11/18/17 00:00 120 11/18/17 00:00 98.2 124 24 152/98 94 Non-Rebreather 15.0 98.2 11/17/17 23:47 120 152/98 11/17/17 20:00 127 11/17/17 20:00 98.8 107 24 160/99 92 Non-Rebreather 15.0 98.8 11/17/17 19:50 114 160/99 11/17/17 19:25 94 Non-Rebreather 15.0 100 11/17/17 19:25 Non-Rebreather 15.0 100 11/17/17 19:18 122 24 88 Non-Rebreather 15.0 100 11/17/17 19:10 36 11/17/17 19:10 110 26 93 Non-Rebreather 15.0 100 General Appearance: WD/WN, lethargic EENT: PERRL/EOMI Neck: supple, no JVD Rhythm: Afib Cardiovascular: tachycardia, irregularly irregular Respiratory/Chest: other - rhonchi bilat Abdomen: normal bowel sounds, non tender, soft Extremities: no swelling Intake and Output 11/17/17 11/18/17 19:00 07:00 Intake Total 255 ml Balance 255 ml IV Total 255 ml # Voids 3 4 # Bowel Movements 1 3 Laboratory Tests Test 11/18/17 02:50 11/18/17 08:10 Urine Legionella Antigen Pending White Blood Count 19.3 K/UL (4.8-10.8) H Red Blood Count 5.00 M/UL (4.20-5.40) Hemoglobin 14.6 G/DL (12.0-16.0) Hematocrit 44.8 % (37.0-47.0) Mean Corpuscular Volume 90 FL (80-99) Mean Corpuscular Hemoglobin 29.3 PG (27.0-31.0) Mean Corpuscular Hemoglobin Concent 32.6 G/DL (32.0-36.0) Red Cell Distribution Width 12.4 % (11.6-14.8) Platelet Count 287 K/UL (150-450) Mean Platelet Volume 8.3 FL (6.5-10.1) Neutrophils (%) (Auto) % (45.0-75.0) Lymphocytes (%) (Auto) % (20.0-45.0) Monocytes (%) (Auto) % (1.0-10.0) Eosinophils (%) (Auto) % (0.0-3.0) Basophils (%) (Auto) % (0.0-2.0) Differential Total Cells Counted 100 Neutrophils % (Manual) 91 % (45-75) H Lymphocytes % (Manual) 5 % (20-45) L Monocytes % (Manual) 4 % (1-10) Eosinophils % (Manual) 0 % (0-3) Basophils % (Manual) 0 % (0-2) Band Neutrophils 0 % (0-8) Platelet Estimate Adequate Platelet Morphology Normal Red Blood Cell Morphology Normal Sodium Level 152 MMOL/L (136-145) H Potassium Level 3.0 MMOL/L (3.5-5.1) L Chloride Level 109 MMOL/L (98-107) H Carbon Dioxide Level 34 MMOL/L (21-32) H Anion Gap 10 mmol/L (5-15) Blood Urea Nitrogen 30 mg/dL (7-18) H Creatinine 1.2 MG/DL (0.55-1.30) Estimat Glomerular Filtration Rate mL/min (>60) Glucose Level 148 MG/DL (74-106) H Calcium Level 8.5 MG/DL (8.5-10.1) Pro-B-Type Natriuretic Peptide 95063 pg/mL (0-125) H Microbiology Date/Time Source Procedure Growth Status 11/17/17 04:40 Sputum Induced Gram Stain - Final Resulted 11/17/17 04:40 Sputum Induced Sputum Culture Pending Resulted SERGEI RENEE Nov 18, 2017 18:22
[2017-11-18] MEDS: Metoprolol 5mg/5ml Inj IVP SCH (19:07)
[2017-11-18] MEDS ORDERED: Potassium Chloride 20 MEQ in NS 275 ML IVPB ONE (19:30)
[2017-11-18 20:00] VITALS: BP 144/63
[2017-11-18] MEDS ORDERED: Vancomycin 750mg/NS 250ml 250 ML IVPB ONE (20:30)
[2017-11-18] MEDS: Donepezil 10mg tab ORAL SCH (20:56)
--- NOTE | 2017-11-18 23:45 | Consultation ---
DATE OF CONSULTATION: 11/18/2017 INFECTIOUS DISEASES CONSULTATION CONSULTING PHYSICIAN: Melina Puga M.D. ATTENDING PHYSICIAN: Chacho Antonio M.D. REASON FOR CONSULTATION: Sepsis, pneumonia, worsening leukocytosis, altered mental status, and hypoxia. CHIEF COMPLAINT: The patient's chief complaint coming in the hospital is altered mental status and hypoxia. HISTORY OF PRESENT ILLNESS: This is an 87-year-old female, who comes in to [facility] with hypoxia, congestion, and altered mental status. She is requiring a breathing mask. She comes from a board and care. I discussed the case with the patient's family member, I believe her daughter, it is her daughter at the bedside. She was treated for pneumonia with azithromycin, Rocephin, and Flagyl. Sputum culture is pending. The patient's leukocytosis is worsening. Infectious Diseases consultation requested because of the worsening leukocytosis. The patient was placed on Zosyn, Diflucan, and vancomycin, ratliff recultured. The patient really cannot add to this history. MAR was noted. Orders noted. Notes were reviewed. 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 She has a history of CVA and history of left carotid endarterectomy, history of spinal stenosis, history of tobacco use in the past, history of alcohol use in the past, history of hypertension, hyperlipidemia, COPD, CHF, osteoporosis, left foot drop, peripheral neuropathy, chronic pain syndrome, anxious, depression, femoral fracture on the right, gait disorder, nonambulatory, atrial fibrillation, B12 deficiency, and vitamin D deficiency. MEDICATIONS: Upon reviewing the MAR, she is on the following medications. She is on IV fluids, potassium, metoprolol, she is on furosemide, she is on Mucomyst, she is on azithromycin, which I discontinued; she was on Rocephin, which I discontinued and Flagyl discontinued. She is on Xopenex, Cymbalta, Neurontin, Tylenol, Atrovent, Xarelto. Outside medications noted and reconciliated. ALLERGIES: Alcohol. FAMILY HISTORY: Noncontributory. No mention of exposure to tuberculosis or cancer. SOCIAL HISTORY: Positive for alcohol and smoking in the past. No IV drug abuse mentioned in the records. REVIEW OF SYSTEMS: CONSTITUTIONAL: The patient has generalized weakness and fatigue. Currently, no fevers. She has congestion and shortness of breath, on a breathing mask. HEAD AND NECK: Could not assess. CARDIAC: No pressors. GASTROINTESTINAL: No nausea, vomiting, or diarrhea. per Rn stool is soft. PULMONARY: Congestion and short of breath. She is again on a breathing mask. No significant secretions or hemoptysis noted. SKIN: No new rash. Wounds were noted. Skin review was noted. NEUROLOGIC: No seizures. Again, generalized weakness. EXTREMITIES: Could not assess. Could not get her review of systems. The patient is poorly communicative overall. No fevers at this time. She has altered mental status. GENITOURINARY: She has no current Lopez. PHYSICAL EXAMINATION: GENERAL: Lethargic, weak, poorly responsive, and poorly communicative. VITAL SIGNS: Temperature is 97.7 degrees, pulse rate 126, respiratory rate 24, blood pressure 137/90, and saturation 95%. She is on 15 L non-rebreather. HEAD AND NECK: Oral exam, no thrush. Eye exam, no icterus. Normocephalic. No facial droop. No neck stiffness. Neck is supple. No JVD. HEART: Occasionally regular. No obvious gallop or murmur. ABDOMEN: Soft. Positive bowel sounds. LUNGS: Bilateral rhonchi, rales, and crackles. SKIN: No rash or dermatitis. MUSCULOSKELETAL: No effusion. Legs are without cellulitis. PERIPHERAL VASCULAR: No cyanosis or gangrene. GENITOURINARY: She has no Lopez. LINES: Line sites without phlebitis. NEUROLOGIC: Generalized weakness, poorly responsive. LABORATORY AND DIAGNOSTIC DATA: Laboratory data is as follows: The patient's creatinine is 1.2. White count is now 19.3 and hemoglobin 14.6. Initial white count on admission was 10.9 and now it is 19.3 and hemoglobin 14.6. Creatinine 1.2. UA initially had 1+ leukocyte esterase, 5-10 white blood cells. No urine culture was done. Repeat blood cultures and urine culture have been ordered. Sputum culture is pending. Imaging studies, chest x-ray shows to be unchanged. It shows projecting upper lobe air space disease in the right lung and increased right retrocardiac consolidation. Previous chest x-ray shows increase in the right upper lobe pneumonia. Sodium 152 and creatinine 1.2. ASSESSMENT AND PLAN: 1. The patient has altered mental status, elevated white count, sepsis, tachycardia, and SIRS criteria. The patient is at high risk for aspiration, healthcare-acquired pneumonia. She certainly could have atypical pneumonia, but now this is probably less likely and seems to not be improving on azithromycin, she also initially had Levaquin, both excellent medications for atypical pneumonia. Leukocytosis worsening. The patient is at high risk for fungemia also because she has been on multiple antibiotics for some time. At this time, based on the chest x-ray, seemed to be without improvement and she is still hypoxic and worsening leukocytosis, I will change the antibiotics to vancomycin and Zosyn to cover for MRSA and also broaden Gram-negative coverage. Continue vancomycin and Zosyn. We will also add Diflucan for fungemia coverage. There is no diarrhea to suggest C. difficile at this time. Stool is soft, however, she does have diarrhea, we will check for C. difficile. She is requiring potassium, but again she has been on Flagyl, was not showing improvement of leukocytosis. Continue vancomycin, Zosyn, and Diflucan. We will check cultures, laboratories, chest x-ray, and await sputum culture results. Legionella and Mycoplasma serology have been ordered and if they are positive, we will treat accordingly. She has been on antibiotics treatment for at least several days anyway and azithromycin stays in system for some time. 2. The patient has hyponatremia and she did have anemia. 3. Altered mental status. 4. 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 5. CVA. 6. History of left carotid endarterectomy and high aspiration risk. 7. Lumbar spinal stenosis, scoliosis. 8. History of tobacco use. 9. History of alcohol dependence. 10. Hypertension. 11. Hyperlipidemia. 12. COPD. 13. CHF. 14. Osteoporosis. 15. Left footdrop. 16. Peripheral neuropathy. 17. Chronic pain syndrome. 18. Anxious and depression. 19. History of right femoral fracture. 20. Gait disorder. 21. Atrial fibrillation. 22. B12 deficiency. 23. Vitamin D deficiency. 24. MAR was noted. 25. Case discussed with RN. 26. Case discussed with the patient's family member. 27. Family history is noncontributory. 28. Social history positive for smoking and alcohol use in the past. 29. Skin care protocol. 30. Continue treatment per primary consultants. Melina Puga M.D. DR: KAYLEIGH JOB#: [id number] CC: ROSEY
[2017-11-19] VITALS: BP 146/104
[2017-11-19] MEDS: Metoprolol 5mg/5ml Inj IVP SCH ×3 (00:29→12:00)
[2017-11-19] MEDS: Ipratropium 0.02% Inh Soln 2.5ml UD HHN SCH ×3 (01:43→12:54)
[2017-11-19] MEDS: Levalbuterol Inh UD 1.25mg/0.5ml HHN SCH ×3 (01:43→12:54)
[2017-11-19 04:00] VITALS: BP 174/92
[2017-11-19] MEDS ORDERED: Morphine Sulfate 4mg/ml Inj IVP PRN ×2 (07:30→11:30)
[2017-11-19 08:00] VITALS: BP 91/38
[2017-11-19] MEDS ORDERED: LORazepam Inj 2mg/ml 1ml IV PRN (08:00)
[2017-11-19 08:06] LABS: HEMATOCRIT 40.6 % (37.0-47.0); HEMOGLOBIN 12.2 G/DL (12.0-16.0); MEAN CORPUSCULAR VOLUME 96 FL (80-99); PLATELET COUNT 215 K/UL (150-450); RED BLOOD COUNT 4.21 M/UL (4.20-5.40); RED CELL DISTRIBUTION WIDTH 13.9 % (11.6-14.8); WHITE BLOOD COUNT 19.2 K/UL (4.8-10.8)
[2017-11-19 08:22] LABS: ANION GAP 14 mmol/L (5-15); BLOOD UREA NITROGEN 49 mg/dL (7-18); CARBON DIOXIDE 22 MMOL/L (21-32); CHLORIDE 112 MMOL/L (98-107); CREATININE 3.5 MG/DL (0.55-1.30); POTASSIUM 7.3 MMOL/L (3.5-5.1); SODIUM 147 MMOL/L (136-145)
[2017-11-19] MEDS: DULoxetine 30mg cap ORAL SCH (09:00)
[2017-11-19] MEDS: Xarelto 15mg tab ORAL SCH (09:00)
[2017-11-19] MEDS: Magnesium Oxide 400mg tab ORAL SCH (09:00)
[2017-11-19 11:45] LABS: ANION GAP 14 mmol/L (5-15); BLOOD UREA NITROGEN 49 mg/dL (7-18); CALCIUM 7.9 MG/DL (8.5-10.1); CARBON DIOXIDE 22 MMOL/L (21-32); CHLORIDE 112 MMOL/L (98-107); CREATININE 3.7 MG/DL (0.55-1.30); POTASSIUM 8.4 MMOL/L (3.5-5.1); SODIUM 147 MMOL/L (136-145)
[2017-11-19 12:00] VITALS: BP 110/74
--- NOTE | 2017-11-19 12:53 | Geriatric Progress Note ---
Assessment/Plan Problems: (1) Pneumonia (2) Bronchospasm (3) Acute on chronic diastolic CHF (congestive heart failure), NYHA class 4 (4) Vascular dementia (5) Chronic pain syndrome (6) Anxious depression (7) Atrial fibrillation with rapid ventricular response (8) Respiratory distress (9) Sepsis (10) Dysphagia (11) Encephalopathy (12) Hypokalemia (13) Acute kidney injury (14) Hyperkalemia Assessment/Plan Clearly multisystem failure now with renal shutdown - ? antibiotics, ? prerenal. Discussed with family. Patient clearly not a dialysis candidate, family feels she would not have wanted Kayexelate, can not tolerate more diuresis. Family strongly considering pure palliative care, but need to speak with other dtrs. For present, continue current tx, without intervention for correction of hyperkalemia. Morphine and Ativan available for discomfort or myoclonic activity. Prognosis for recovery virtually nil. Discussed with: family, hospital staff Subjective Interval Events Patient developed low bp this am and now is found to have renal shutdown with Cr up to 3.7, marked hyperkalemia. BP now improved, but patient unresponsive with diffusely cool extremities. Antibiotic spectrum broadened last p.m. by Dr. Puga. Oxygen requirements remain maximal for NRBM. Leukocytosis persists. Hematologic/Lymphatic: Reports: swollen glands Subjective No response. Geriatric Geriatric Last 24 Hour Vital Signs Date Time Temp Pulse Resp B/P (MAP) Pulse Ox O2 Delivery O2 Flow Rate FiO2 11/19/17 12:00 86 110/74 11/19/17 12:00 86 110/74 Non-Rebreather 100 11/19/17 08:00 97.9 94 17 91/38 97 Non-Rebreather 100 97.9 11/19/17 07:57 86 11/19/17 07:25 78 14 91 Non-Rebreather 15.0 100 11/19/17 07:10 Non-Rebreather 15.0 100 11/19/17 07:10 72 14 90 Non-Rebreather 15.0 100 11/19/17 07:10 90 Non-Rebreather 15.0 100 11/19/17 04:00 98.0 104 24 174/92 94 Non-Rebreather 15.0 98.0 11/19/17 04:00 103 11/19/17 01:57 120 30 Non-Rebreather 15.0 100 11/19/17 01:57 121 35 90 Venturi Mask 15.0 100 11/19/17 01:44 101 25 92 Non-Rebreather 15.0 100 11/19/17 00:29 111 136/97 11/19/17 00:00 124 11/19/17 00:00 98.1 124 18 146/104 95 Non-Rebreather 15.0 98.1 11/18/17 20:00 97.7 134 14 144/63 93 97.7 11/18/17 20:00 116 11/18/17 20:00 Non-Rebreather 15.0 11/18/17 19:50 Non-Rebreather 11/18/17 19:49 134 Non-Rebreather 11/18/17 19:49 92 Non-Rebreather 15.0 100 11/18/17 19:49 Non-Rebreather 15.0 100 11/18/17 19:07 126 137/90 11/18/17 17:10 126 137/90 11/18/17 16:00 97.7 103 24 137/90 95 Non-Rebreather 15.0 97.7 11/18/17 16:00 126 11/18/17 13:41 129 35 94 Venturi Mask 15.0 100 11/18/17 13:19 118 25 98 Non-Rebreather 15.0 100 Intake and Output 11/18/17 11/19/17 19:00 07:00 Intake Total 678 ml Balance 678 ml Intake Oral 240 ml IV Total 438 ml # Voids 6 # Bowel Movements 5 Laboratory Tests Test 11/19/17 07:45 11/19/17 10:50 White Blood Count 19.2 K/UL (4.8-10.8) H Red Blood Count 4.21 M/UL (4.20-5.40) Hemoglobin 12.2 G/DL (12.0-16.0) Hematocrit 40.6 % (37.0-47.0) Mean Corpuscular Volume 96 FL (80-99) Mean Corpuscular Hemoglobin 28.9 PG (27.0-31.0) Mean Corpuscular Hemoglobin Concent 30.0 G/DL (32.0-36.0) L Red Cell Distribution Width 13.9 % (11.6-14.8) Platelet Count 215 K/UL (150-450) Mean Platelet Volume 7.7 FL (6.5-10.1) Neutrophils (%) (Auto) % (45.0-75.0) Lymphocytes (%) (Auto) % (20.0-45.0) Monocytes (%) (Auto) % (1.0-10.0) Eosinophils (%) (Auto) % (0.0-3.0) Basophils (%) (Auto) % (0.0-2.0) Differential Total Cells Counted 100 Neutrophils % (Manual) 87 % (45-75) H Lymphocytes % (Manual) 5 % (20-45) L Monocytes % (Manual) 8 % (1-10) Eosinophils % (Manual) 0 % (0-3) Basophils % (Manual) 0 % (0-2) Band Neutrophils 0 % (0-8) Nucleated Red Blood Cells 1 /100 WBC Platelet Estimate Adequate Platelet Morphology Normal Polychromasia 1+ Hypochromasia 1+ Sodium Level 147 MMOL/L (136-145) H 147 MMOL/L (136-145) H Potassium Level 7.3 MMOL/L (3.5-5.1) #*H 8.4 MMOL/L (3.5-5.1) *H Chloride Level 112 MMOL/L (98-107) H 112 MMOL/L (98-107) H Carbon Dioxide Level 22 MMOL/L (21-32) 22 MMOL/L (21-32) Anion Gap 14 mmol/L (5-15) 14 mmol/L (5-15) Blood Urea Nitrogen 49 mg/dL (7-18) H 49 mg/dL (7-18) H Creatinine 3.5 MG/DL (0.55-1.30) #H 3.7 MG/DL (0.55-1.30) H Estimat Glomerular Filtration Rate mL/min (>60) mL/min (>60) Glucose Level 102 MG/DL (74-106) 51 MG/DL (74-106) L Calcium Level 8.0 MG/DL (8.5-10.1) L 7.9 MG/DL (8.5-10.1) L Random Vancomycin Level 14.1 ug/mL Current Medications Medications (Trade) Dose Ordered Sig/Neo Route PRN Reason Start Time Stop Time Status Last Admin Dose Admin Acetaminophen (Tylenol) 650 mg Q6H PRN ORAL For Pain 11/19/17 10:15 12/13/17 22:14 Acetylcysteine (Mucomyst) 100 mg TIDRT INH 11/17/17 19:00 12/17/17 18:59 11/19/17 07:09 Dextrose 1,000 ml @ 50 mls/hr Q20H IV 11/18/17 19:00 12/18/17 18:59 11/18/17 20:14 Donepezil HCl (Aricept) 10 mg QHS ORAL 11/14/17 21:00 12/14/17 20:59 11/18/17 20:56 Duloxetine HCl (Cymbalta) 60 mg DAILY ORAL 11/14/17 09:00 12/14/17 08:59 11/18/17 09:39 Fluconazole/ Sodium Chloride 100 ml @ 100 mls/hr Q24H IV 11/18/17 20:00 11/25/17 19:59 11/18/17 20:56 Gabapentin (Neurontin) 100 mg BID ORAL 11/14/17 09:00 12/14/17 08:59 11/18/17 17:11 Ipratropium [place] (Atrovent) 500 mcg Q4H PRN HHN Unrelieved Shortness of Breath 11/14/17 14:15 11/19/17 14:14 Ipratropium [place] (Atrovent) 500 mcg Q6HRT HHN 11/14/17 19:00 11/19/17 18:59 11/19/17 07:09 Levalbuterol HCl (Xopenex) 1.25 mg Q4H PRN HHN SOB and wheezing 11/14/17 13:45 11/19/17 13:44 Levalbuterol HCl (Xopenex) 1.25 mg Q6HRT HHN 11/14/17 19:00 11/19/17 18:59 11/19/17 07:09 Lorazepam (Ativan 2mg/ml 1ml) 2 mg Q2H PRN IV For Anxiety 11/19/17 08:00 11/26/17 07:59 Magnesium Oxide (Mag-Ox 400mg) 400 mg DAILY ORAL 11/15/17 09:00 12/15/17 08:59 11/18/17 09:39 Metoprolol Tartrate (Lopressor) 2.5 mg EVERY 6 HOURS IVP 11/18/17 18:45 12/18/17 18:44 11/19/17 00:29 Mirtazapine (Remeron) 15 mg BEDTIME ORAL 11/14/17 21:00 12/14/17 20:59 11/18/17 20:56 Morphine Sulfate (Morphine Sulfate) 4 mg Q4H PRN IVP For Pain 11/19/17 11:30 11/26/17 07:29 Piperacillin Sod/ Tazobactam Sod 3.375 gm/Dextrose 100 ml @ 25 mls/hr Q12HR@1000,2200 IVPB 11/18/17 22:00 11/25/17 21:59 11/19/17 10:29 Rivaroxaban (Xarelto) 15 mg DAILY ORAL 11/14/17 15:00 12/14/17 14:59 11/18/17 09:39 Vancomycin HCl (Vanco rx to dose) 1 ea DAILYPRN PRN MISC Per rx protocol 11/18/17 17:30 12/18/17 17:29 Height (Feet): 5 Height (Inches): 0.00 Weight (Pounds): 105 General Appearance: other - unresponsive Head: normocephalic, atraumatic Neck: full range of motion, no mass Respiratory: other - diminished respiratory volumes, rhonchi. Cardiovascular: irregularly irregular - rate now controlled. Gastrointestinal: normal bowel sounds, non tender, soft, no mass, no organomegaly, non-distended Musculoskeletal: other - cool extremities with some livedo. Edema: no edema noted Generalized KALEB GROSS Nov 19, 2017 12:53
--- NOTE | 2017-11-19 17:18 | Pulmonology Progress Note ---
Assessment/Plan Problems: (1) Pneumonia (2) Bronchospasm (3) Atrial fibrillation with rapid ventricular response (4) Vascular dementia (5) UTI (urinary tract infection) (6) Acute on chronic diastolic CHF (congestive heart failure), NYHA class 4 Assessment/Plan ASSESSMENT: The patient is an 87-year-old demented female, assisted living resident with a history of Korsakoff syndrome, CHF, COPD, ETOH and tobacco use in the past, paroxysmal atrial fibrillation, presenting with respiratory illness, likely viral URI with superimposed tracheobronchitis/pneumonia, possible aspiration with a component of reactive airway disease and bronchospasm as well as pulmonary edema. PROBLEM LIST: 1. Acute hypoxemic respiratory failure, likely multifactorial. 2. Likely viral upper respiratory tract infection with subsequent tracheobronchitis/pneumonia. 3. Congestive heart failure with a component of acute decompensated heart failure. 4. Bronchospasm and reactive airway disease. 5. Dementia. 6. Korsakoff syndrome. 7. Prior cerebrovascular accident. 8. Questionable underlying history of chronic obstructive pulmonary disease. 9. History of tobacco use in the past. 10. Paroxysmal atrial fibrillation. 11. SANKET with hyperkalemia TREATMENT PLAN: 1. Optimize pulmonary hygiene/mobilize as tolerated. 2. Titrate down FiO2 to keep saturations greater than 90%. 3. Abx per ID 4. [id number] and p.r.n. Atrovent and levalbuterol (Xopenex) handheld nebulizer treatments. 5. Continue chest PT QID to help mobilize secretion 6. Continue mucomyst HHN's BID 7. Monitor volumes, hold diuretics --> repeat BMP, ECG, kayexelate 8. F/U cards recs 9. Aspiration precautions 10. DVT prophylaxis. The patient is on Xarelto. 11. The patient is DNR/DNI. --> FAMILY LEANING TOWARDS COMFORT, WAITING TO DISCUSS AMONGST THEMSELVES Subjective Allergies: Coded Allergies: ALCOHOL (Unverified Allergy, Unknown, 11/13/17) Subjective Seen earlier (@ 8 am) - patient has since passed K elevated with SANKET, repeat sent Family leaning towards comfort On 15L NRBFM, unresponsive Objective Last 24 Hour Vital Signs Date Time Temp Pulse Resp B/P (MAP) Pulse Ox O2 Delivery O2 Flow Rate FiO2 11/19/17 13:07 56 8 Non-Rebreather 15.0 100 11/19/17 12:56 88 12 93 Non-Rebreather 15.0 100 11/19/17 12:00 86 110/74 11/19/17 12:00 86 110/74 Non-Rebreather 100 11/19/17 11:43 87 11/19/17 08:00 97.9 94 17 91/38 97 Non-Rebreather 100 97.9 11/19/17 07:57 86 11/19/17 07:25 78 14 91 Non-Rebreather 15.0 100 11/19/17 07:10 Non-Rebreather 15.0 100 11/19/17 07:10 72 14 90 Non-Rebreather 15.0 100 11/19/17 07:10 90 Non-Rebreather 15.0 100 11/19/17 04:00 98.0 104 24 174/92 94 Non-Rebreather 15.0 98.0 11/19/17 04:00 103 11/19/17 01:57 120 30 Non-Rebreather 15.0 100 11/19/17 01:57 121 35 90 Venturi Mask 15.0 100 11/19/17 01:44 101 25 92 Non-Rebreather 15.0 100 11/19/17 00:29 111 136/97 11/19/17 00:00 124 11/19/17 00:00 98.1 124 18 146/104 95 Non-Rebreather 15.0 98.1 11/18/17 20:00 97.7 134 14 144/63 93 97.7 11/18/17 20:00 116 11/18/17 20:00 Non-Rebreather 15.0 11/18/17 19:50 Non-Rebreather 11/18/17 19:49 134 Non-Rebreather 11/18/17 19:49 92 Non-Rebreather 15.0 100 11/18/17 19:49 Non-Rebreather 15.0 100 11/18/17 19:07 126 137/90 Intake and Output 11/18/17 11/19/17 19:00 07:00 Intake Total 678 ml Balance 678 ml Intake Oral 240 ml IV Total 438 ml # Voids 6 # Bowel Movements 5 General Appearance: other - unresponsive HEENT: normocephalic, atraumatic, mucous membranes moist Respiratory/Chest: rhonchi Cardiovascular: normal peripheral pulses, normal rate, regular rhythm Abdomen: normal bowel sounds, soft, non tender, no organomegaly, non distended Extremities: no cyanosis, no clubbing, no edema Microbiology Date/Time Source Procedure Growth Status 11/17/17 04:40 Sputum Induced Gram Stain - Final Complete 11/17/17 04:40 Sputum Culture - Final Stephie Albicans Complete 11/18/17 18:40 Stool Clostridium difficile Toxin Assay - Final Complete Laboratory Tests 11/19/17 07:45: White Blood Count 19.2H, Red Blood Count 4.21, Hemoglobin 12.2, Hematocrit 40.6 , Mean Corpuscular Volume 96, Mean Corpuscular Hemoglobin 28.9, Mean Corpuscular Hemoglobin Concent 30.0L, Red Cell Distribution Width 13.9, Platelet Count 215, Mean Platelet Volume 7.7, Neutrophils (%) (Auto) , Lymphocytes (%) (Auto) , Monocytes (%) (Auto) , Eosinophils (%) (Auto) , Basophils (%) (Auto) , Differential Total Cells Counted 100, Neutrophils % ( Manual) 87H, Lymphocytes % (Manual) 5L, Monocytes % (Manual) 8, Eosinophils % ( Manual) 0, Basophils % (Manual) 0, Band Neutrophils 0, Nucleated Red Blood Cells 1, Platelet Estimate Adequate, Platelet Morphology Normal, Polychromasia 1 +, Hypochromasia 1+, Sodium Level 147H, Potassium Level 7.3#*H, Chloride Level 112H, Carbon Dioxide Level 22, Anion Gap 14, Blood Urea Nitrogen 49H, Creatinine 3.5#H, Estimat Glomerular Filtration Rate , Glucose Level 102, Calcium Level 8.0L, Random Vancomycin Level 14.1 11/19/17 10:50: Sodium Level 147H, Potassium Level 8.4*H, Chloride Level 112H, Carbon Dioxide Level 22, Anion Gap 14, Blood Urea Nitrogen 49H, Creatinine 3.7H, Estimat Glomerular Filtration Rate , Glucose Level 51L, Calcium Level 7.9L Current Medications Medications (Trade) Dose Ordered Sig/Neo Route PRN Reason Start Time Stop Time Status Last Admin Dose Admin Acetaminophen (Tylenol) 650 mg Q6H PRN ORAL For Pain 11/19/17 10:15 12/13/17 22:14 Acetylcysteine (Mucomyst) 100 mg TIDRT INH 11/17/17 19:00 12/17/17 18:59 11/19/17 12:56 Dextrose 1,000 ml @ 50 mls/hr Q20H IV 11/18/17 19:00 12/18/17 18:59 11/18/17 20:14 Donepezil HCl (Aricept) 10 mg QHS ORAL 11/14/17 21:00 12/14/17 20:59 11/18/17 20:56 Duloxetine HCl (Cymbalta) 60 mg DAILY ORAL 11/14/17 09:00 12/14/17 08:59 11/18/17 09:39 Fluconazole/ Sodium Chloride 100 ml @ 100 mls/hr Q24H IV 11/18/17 20:00 11/25/17 19:59 11/18/17 20:56 Gabapentin (Neurontin) 100 mg BID ORAL 11/14/17 09:00 12/14/17 08:59 11/18/17 17:11 Ipratropium [place] (Atrovent) 500 mcg Q6HRT N 11/14/17 19:00 11/19/17 18:59 11/19/17 12:54 Levalbuterol HCl (Xopenex) 1.25 mg Q6HRT N 11/14/17 19:00 11/19/17 18:59 11/19/17 12:54 Lorazepam (Ativan 2mg/ml 1ml) 2 mg Q2H PRN IV For Anxiety 11/19/17 08:00 11/26/17 07:59 Magnesium Oxide (Mag-Ox 400mg) 400 mg DAILY ORAL 11/15/17 09:00 12/15/17 08:59 11/18/17 09:39 Metoprolol Tartrate (Lopressor) 2.5 mg EVERY 6 HOURS IVP 11/18/17 18:45 12/18/17 18:44 11/19/17 00:29 Mirtazapine (Remeron) 15 mg BEDTIME ORAL 11/14/17 21:00 12/14/17 20:59 11/18/17 20:56 Morphine Sulfate (Morphine Sulfate) 4 mg Q4H PRN IVP For Pain 11/19/17 11:30 11/26/17 07:29 Piperacillin Sod/ Tazobactam Sod 3.375 gm/Dextrose 100 ml @ 25 mls/hr Q12HR@1000,2200 IVPB 11/18/17 22:00 11/25/17 21:59 11/19/17 10:29 Rivaroxaban (Xarelto) 15 mg DAILY ORAL 11/14/17 15:00 12/14/17 14:59 11/18/17 09:39 Vancomycin HCl (Vanco rx to dose) 1 ea DAILYPRN PRN MISC Per rx protocol 11/18/17 17:30 12/18/17 17:29 Vancomycin HCl 500 mg/Dextrose 110 ml @ 110 mls/hr ONCE ONCE IVPB 11/19/17 21:00 11/19/17 21:59 BRIDGETT MORENO M.D. Nov 19, 2017 17:18
[2017-11-19] MEDS ORDERED: Vancomycin 500mg/D5W 110ml IVPB ONE ×2 (21:00)
--- NOTE | 2017-11-19 23:00 | Discharge Summary ---
DATE OF ADMISSION: 11/13/2017 SUMMARY The patient was admitted on 11/13/2017 and on 11/19/2017. DIAGNOSES: 1. Multiorgan system failure. 2. Respiratory insufficiency, likely multifactorial. 3. Apparent pneumonitis, possibly aspiration, bacterial, and fungal. 4. Congestive heart failure with significant valvular disease on echocardiogram. 5. Acute kidney injury with hyperkalemia. 6. Moderately advanced cognitive dysfunction, felt to be associated with underlying vascular dementia with possible components of Korsakoff's and possible element of primary degenerative dementia. 7. Status post prior cerebrovascular accident, status post left carotid endarterectomy. 8. Lumbar spinal stenosis and scoliosis, status post lumbar surgery x2. 9. History of tobacco usage. 10. History of alcohol dependency. 11. Hypertension. 12. Dyslipidemia. 13. COPD. 14. CHF. 15. Osteoporosis. 16. Left footdrop. 17. Peripheral neuropathy. 18. Chronic pain syndrome. 19. Anxious, depression. 20. History of right femoral fracture, status post surgery. 21. Gait disorder, nonambulatory. 22. Atrial fibrillation. 23. B12 deficiency. 24. Vitamin D deficiency. HISTORY OF PRESENT ILLNESS: The patient is an 87-year-old woman, who presented with increasing congestion, hypoxia, and difficulty breathing. Details of the history and physical examination are per the dictation of 11/13/2017. HOSPITAL COURSE: The patient was admitted and appeared to have elements on chest x-ray of both a possible pneumonic infiltrate and an element of fluid redistribution suggestive of congestive heart failure. The patient was seen by Dr. Isai Chin and treatment was begun with broad-spectrum antibiotics. An attempt was also made for diuresis. The patient at times would not fully cooperate with her oral medications and she also had a fairly low blood pressures, so only small doses of intravenous diuretic could be use. Dr. Ana Wasserman was consulted with respect to the cardiac status and findings on echocardiogram included moderate tricuspid regurgitation and significant diastolic dysfunction. It was felt that these valvular abnormalities were likely contributing to some degree to the patient's apparent congestive heart failure. Nonetheless, attempt were made to diurese the patient since she remained on 100% by a non-rebreathing mask and would desaturate with any attempt at weaning or even with movement while on the mask. On the other hand, the patient appeared fairly comfortable, she smiled and appeared to deny any discomfort, although her responses were not entirely reliable, given her advanced cognitive dysfunction. The patient neither improved nor got worse over the first several days. She had consistently poor oral intake and therefore it was decided to continue active treatment, although it was understood by the family that the patient's overall prognosis is quite guarded, given her baseline chronic illnesses. On 11/16/2017, the patient's white count began to increase somewhat and then increased further on the 11/18/2017. Dr. Melina Puga was asked to evaluate the patient from an infectious disease point of view and because of the growth of some fungal elements in her sputum, antibiotic coverage is further broadened and Diflucan was added for fungal coverage. On the 11/19/2017, the patient was noted to have developed a complete renal shutdown likely associated with a hypotensive event as well as possibly toxicity from her various antibiotics and general prerenal etiology. The patient's potassium therefore increased about 7 to 8.4. Discussion was held with the family. At this point, the patient appeared quite compromised and unlikely to survive this episode with any residual functional capabilities. Dialysis was not felt to be a viable option. Treatment of the hyperkalemia would require Kayexalate enemas since the patient was not sufficiently asked bicarbonate. Family after discussion felt that invasive treatment even with the end was not warranted and they began to consider purely palliative approach, however, discussions needed to be held with all the family members who are not physically present. Therefore, it was agreed that the patient will continue on her present treatment regimen pending the final decision by the family. Before the final decisions made, the patient became progressively bradycardic and then experienced a cardiac arrest and without further unexpected complications. Chacho Antonio M.D. DR: DON JOB#: [id number] CC:
== END 2017-11-19 13:16 | disposition expired | DRG 871 ==
LOC: EDBD 16:46 → EMR 17:16 → 2E 17:45 → EDBEDREQ 18:19
DX: A41.9 Sepsis, unspecified organism (principal); J69.0 Pneumonitis due to inhalation of food and vomit; J96.01 Acute respiratory failure with hypoxia; I50.33 Acute on chronic diastolic (congestive) heart failure; N39.0 Urinary tract infection, site not specified; N17.9 Acute kidney failure, unspecified; E87.1 Hypo-osmolality and hyponatremia; I11.0 Hypertensive heart disease with heart failure; E87.5 Hyperkalemia; G62.9 Polyneuropathy, unspecified; J44.9 Chronic obstructive pulmonary disease, unspecified; M48.061 Spinal stenosis, lumbar region without neurogenic claudication; F10.21 Alcohol dependence, in remission; E78.5 Hyperlipidemia, unspecified; Z86.73 Personal history of transient ischemic attack (TIA), and cerebral infarction without residual deficits; Z87.891 Personal history of nicotine dependence; R26.9 Unspecified abnormalities of gait and mobility; I48.0 Paroxysmal atrial fibrillation; F04 Amnestic disorder due to known physiological condition; M81.0 Age-related osteoporosis without current pathological fracture; M21.372 Foot drop, left foot; G89.4 Chronic pain syndrome; F41.9 Anxiety disorder, unspecified; F32.9 Major depressive disorder, single episode, unspecified; E55.9 Vitamin D deficiency, unspecified; E53.8 Deficiency of other specified B group vitamins
CPT/HCPCS: 36415; 36600; 71045; 80048; 80053; 80202; 81003; 82164; 82550; 82553; 82803; 83605; 83735; 83880; 84484; 85007; 85025; 86710; 86738; 87040; 87070; 87081; 87205; 87324; 93005; 93306; 94640; 94664; 94760; 99285; J7620